=== PATIENT | female | born 1930 | race Caucasian/White ===

== ENCOUNTER 2017-06-09 21:34 | Inpatient (IN) | payer MEDICARE ==
[~2017-06-09] VITALS: Ht 157.5 cm; Wt 68.7 kg
[~2017-06-09 21:34] MED LIST: ASPI81 PO; CIPR500T2 PO; LISI5 PO; METO50TA PO; METR-1 PO; PRAV40TA PO; RANI150 PO; TICA90 PO
[2017-06-09 21:35] VITALS: BP 142/68; PULSE 132; RESP 18; TEMP 98.7; O2SAT 98
[2017-06-09] MEDS ORDERED: ASPI-516 CHEW (21:47)
[2017-06-09] MEDS ORDERED: BRIL90TA PO (21:47)
[2017-06-09] MEDS ORDERED: PANTOPRAZOLE INJ 80 MG in SODIUM CHLORIDE 0.9% INJ 35 ML IV ONE (22:24)
[2017-06-09 22:27] VITALS: BP 179/77; PULSE 99; RESP 16; O2SAT 97
--- NOTE | 2017-06-09 22:44 | PD ---
HPI Chief Complaint: GI Complaint Time Seen by Provider: 22:16 Travel History International Travel<30 days: No Contact w/Intl Traveler<30days: No Traveled to known affect area: No History of Present Illness HPI 86yo F with PMH of CAD s/p cardiac stent on brillinta, HTN presents to the ED with c/o gush of red blood about an hour ago. Said it had stopped and then happened again when she went to the bathroom here. Denies any fever, chest pain , sob, n/v, focal weakness or numbness. Said she had some abdominal pain prior to the blood coming out and only when I press on it. PFSH Past Medical History Hx Anticoagulant Therapy: Yes (ASA) Arthritis: No Cancer: No Cardiac Catheterization: Yes Cardiovascular Problems: Yes (STENT IN THE HEART) Diabetes: Yes Patient Takes Glucophage: No Diminished Hearing: No Endocrine: Yes Gastrointestinal Disorders: Yes Genitourinary: Yes Hepatitis: No Hiatal Hernia: Yes Hypertension: Yes Medical other: Yes (ARTHRITIS) Musculoskeletal: Yes Neurologic: No Psychiatric: No Respiratory: No Thyroid Disease: No ?: Not Menopausal: Yes Past Surgical History Abdominal Surgery: Yes (HYSTERECTOMY WITH APPENDECTOMY 1954) Appendectomy: Yes Coronary Stent: Yes (x1) Genitourinary Surgery: Yes (BLADDER SUSPENSION ) Hysterectomy: Yes Oral Surgery: Yes (T&A AGE 10) Pacemaker: No Other Surgery: Yes Family History Family Hypercholesterolemia: Yes Social History Alcohol Use: No Tobacco Use: No Substance Use: No Allergies-Medications (Allergen,Severity, Reaction): Coded Allergies: clopidogrel (Unverified Allergy, Severe, 06/09/17) Uncoded Allergies: fish (Allergy, Severe, 11/01/15) hives, swelling Reported Meds & Prescriptions Reported Meds & Active Scripts Active Reported Brilinta (Ticagrelor) 90 Mg Tab 90 Mg PO BID Aspirin 81 Mg Chew 81 Mg CHEW DAILY Review of Systems Except as stated in HPI: all other systems reviewed are Neg Physical Exam Narrative GENERAL: 86yo F in mild distress. SKIN: Focused skin assessment warm/dry. HEAD: Atraumatic. Normocephalic. EYES: Pupils equal and round. No scleral icterus. No injection or drainage. ENT: No nasal bleeding or discharge. Mucous membranes pink and moist. NECK: Trachea midline. No JVD. CARDIOVASCULAR: Mildly tachycardic in the 105s RESPIRATORY: No accessory muscle use. Clear to auscultation. Breath sounds equal bilaterally. GASTROINTESTINAL: Abdomen soft, +mild ttp left and right upper abdomen. No rebound tenderness or guarding. RECTAL: +Red blood. Hemaprompt positive. MUSCULOSKELETAL: No obvious deformities. No clubbing. No cyanosis. No edema. NEUROLOGICAL: Awake and alert. No obvious cranial nerve deficits. Motor grossly within normal limits. Normal speech. PSYCHIATRIC: Appropriate mood and affect; insight and judgment normal. Data Data Last Documented VS Vital Signs Date Time Temp Pulse Resp B/P (MAP) Pulse Ox O2 Delivery O2 Flow Rate FiO2 06/10/17 00:18 84 16 133/67 (89) 96 Room Air 06/09/17 21:35 98.7 Orders Orders Basic Metabolic Panel (Bmp) (06/09/17 22:24) Complete Blood Count With Diff (06/09/17 22:24) Lipase (06/09/17 22:24) Prothrombin Time / Inr (Pt) (06/09/17 22:24) Act Partial Throm Time (Ptt) (06/09/17 22:24) Urinalysis - C+S If Indicated (06/09/17 22:24) Type And Screen (06/09/17 22:24) Sodium Chloride 0.9... W/Pantoprazole In (06/09/17 22:24) Sodium Chloride 0.9... W/Pantoprazole In (06/09/17 22:24) Ct Abd/Pel W Iv Contrast(Rout) (06/09/17 ) Iohexol 350 Inj (Omnipaque 350 Inj) (06/09/17 23:45) Admit Order (Ed Use Only) (06/10/17 00:34) Labs Laboratory Tests Test 06/09/17 22:41 White Blood Count 10.7 TH/MM3 Red Blood Count 4.33 MIL/MM3 Hemoglobin 11.6 GM/DL Hematocrit 33.9 % Mean Corpuscular Volume 78.2 FL Mean Corpuscular Hemoglobin 26.8 PG Mean Corpuscular Hemoglobin Concent 34.3 % Red Cell Distribution Width 14.8 % Platelet Count 233 TH/MM3 Mean Platelet Volume 9.1 FL Neutrophils (%) (Auto) 70.1 % Lymphocytes (%) (Auto) 20.7 % Monocytes (%) (Auto) 7.3 % Eosinophils (%) (Auto) 1.3 % Basophils (%) (Auto) 0.6 % Neutrophils # (Auto) 7.5 TH/MM3 Lymphocytes # (Auto) 2.2 TH/MM3 Monocytes # (Auto) 0.8 TH/MM3 Eosinophils # (Auto) 0.1 TH/MM3 Basophils # (Auto) 0.1 TH/MM3 CBC Comment DIFF FINAL Differential Comment Prothrombin Time 10.2 SEC Prothromb Time International Ratio 1.0 RATIO Activated Partial Thromboplast Time 25.9 SEC Urine Color LIGHT-YELLOW Urine Turbidity CLEAR Urine pH 6.5 Urine Specific [place] 1.011 Urine Protein NEG mg/dL Urine Glucose (UA) NEG mg/dL Urine Ketones NEG mg/dL Urine Occult Blood MOD Urine Nitrite NEG Urine Bilirubin NEG Urine Urobilinogen LESS THAN 2.0 MG/DL Urine Leukocyte Esterase SMALL Urine RBC LESS THAN 1 /hpf Urine WBC 1 /hpf Urine Squamous Epithelial Cells <1 /hpf Urine Bacteria RARE /hpf Microscopic Urinalysis Comment CULT NOT INDICATED Blood Urea Nitrogen 24 MG/DL Creatinine 0.98 MG/DL Random Glucose 206 MG/DL Calcium Level 8.7 MG/DL Sodium Level 135 MEQ/L Potassium Level 3.5 MEQ/L Chloride Level 99 MEQ/L Carbon Dioxide Level 25.6 MEQ/L Anion Gap 10 MEQ/L Estimat Glomerular Filtration Rate 54 ML/MIN Lipase 132 U/L [facility] Medical Decision Making Medical Screen Exam Complete: Yes Emergency Medical Condition: Yes Differential Diagnosis AV malformation vs. colitis vs. internal hemorrhoids Narrative Course 86yo F with lower GI bleed. Pt said she has episodes of gushes of bright red blood. Initially tachycardic at 132bpm at triage but HR has improved to normal after NS IVF. Labs reviewed, no leukocytosis. H/H 11.6/33.9. Glucose mildly elevated at 206 but normal anion gap. Lipase normal. UA showed moderate blood. culture not indicated. CT a/p showed no acute finding. I feel that observation is warranted given pt's age, multiple comorbidities and episodes of large amounts of Gl bleed. Protonix given. Discussed with Dr. Casillas and accepted to her service. [facility] Point of Care Internal Pos. & Neg. Controls: Passed Fecal Specimen Occult Blood: Positive Diagnosis Primary Impression: GI bleed Qualified Codes: K92.2 - Gastrointestinal hemorrhage, unspecified Admitting Information Admitting Physician Requests: Observation Viramontes,Evelin DO Jun 09, 2017 22:44
[2017-06-09 22:58] LABS: AUTOMATED NEUTROPHIL # 7.5 TH/MM3 (1.8-7.7); BASOPHIL # 0.1 TH/MM3 (0-0.2); BASOPHIL % 0.6 % (0.0-2.0); EOSINOPHIL # 0.1 TH/MM3 (0-0.4); EOSINOPHIL % 1.3 % (0.0-4.0); HEMATOCRIT 33.9 % (35.0-46.0); HEMOGLOBIN 11.6 GM/DL (11.6-15.3); LYMPH % 20.7 % (9.0-44.0); LYMPHOCYTE # 2.2 TH/MM3 (1.0-4.8); MEAN CELL VOLUME 78.2 FL (80.0-100.0); MEAN CORPUSCULAR HEMOGLOBIN 26.8 PG (27.0-34.0); MEAN CORPUSCULAR HGB CONC 34.3 % (32.0-36.0); MEAN PLATELET VOLUME 9.1 FL (7.0-11.0); MONO % 7.3 % (0.0-8.0); MONOCYTE # 0.8 TH/MM3 (0-0.9); NEUT % 70.1 % (16.0-70.0); PLATELET COUNT 233 TH/MM3 (150-450); RED BLOOD COUNT 4.33 MIL/MM3 (4.00-5.30); RED CELL DISTRIBUTION WIDTH 14.8 % (11.6-17.2); WHITE BLOOD COUNT 10.7 TH/MM3 (4.0-11.0)
[2017-06-09 23:01] LABS: BACTERIA, URINE RARE /hpf; BILIRUBIN, URINE NEG (NEG); BLOOD, URINE MOD (NEG); GLUCOSE,URINE NEG (NEG); KETONE, URINE NEG (NEG); NITRITE,URINE NEG (NEG); PH, URINE 6.5 (5.0-8.5); SQUAMOUS EPITHELIAL CELL URINE <1 /hpf (0-5); URINE COLOR LIGHT-YELLOW (YELLW/STRAW); URINE LEUKOCYTE ESTERASE SMALL (NEG)
[2017-06-09 23:10] LABS: PROTHROMBIN TIME - PATIENT 10.2 SEC (9.8-11.6)
[2017-06-09 23:18] LABS: BICARBONATE 25.6 MEQ/L (21.0-32.0); CALCIUM 8.7 MG/DL (8.5-10.1); CREATININE 0.98 MG/DL (0.50-1.00)
[2017-06-09] MEDS ORDERED: IOHEXOL 350 MG/ML 10 ML VIAL (for RAD DIAG) IVCONTRAST ONE (23:45)
[2017-06-10] VITALS (10 sets, daily range): BP systolic 133–185; BP diastolic 67–81; PULSE 80–90; RESP 16–20; TEMP 97.1–98.4; O2SAT 94–96
--- NOTE | 2017-06-10 00:05 | RADRPT ---
EXAM DATE/TIME: 06/09/2017 23:43 [place] COMPARISON: No previous studies available for comparison. INDICATIONS : Rectal bleeding. IV CONTRAST: 100 cc Omnipaque 350 (iohexol) IV ORAL CONTRAST: No oral contrast ingested. RADIATION DOSE: 6.61 CTDIvol (mGy) MEDICAL HISTORY : Cardiovascular disease. Hernia, hiatal. Diabetes mellitus type 2. SURGICAL HISTORY : Appendectomy. Cholecystectomy.Hysterectomy.Bladder suspension. ENCOUNTER: Initial ACUITY: 1 day PAIN SCALE: 0/10 LOCATION: abdomen TECHNIQUE: Volumetric scanning of the abdomen and pelvis was performed. Using automated exposure control and ad justment of the mA and/or kV according to patient size, radiation dose was kept as low as reasonably achievable to obtain optimal diagnostic quality images. DICOM format image data is available electro nically for review and comparison. FINDINGS: LOWER LUNGS: The visualized lower lungs are clear. LIVER: Homogeneous density without lesion. There is no dilation of the biliary tree. No calcified gallston es. SPLEEN: Normal size without lesion. PANCREAS: Within normal limits. KIDNEYS: Normal in size and shape. There is no mass, stone or hydronephrosis. ADRENAL GLANDS: Within normal limits. VASCULAR: There is no aortic aneurysm. BOWEL/MESENTERY: Small hiatal hernia. Distal colonic diverticulosis. No definite abnormal dilatation, wall thickening or focal inflammatory change. ABDOMINAL WALL: Within normal limits. RETROPERITONEUM: There is no lymphadenopathy. BLADDER: No wall thickening or mass. REPRODUCTIVE: Uterus surgically absent. No evidence of pelvic mass or free fluid. INGUINAL: There is no lymphadenopathy or hernia. MUSCULOSKELETAL: Within normal limits for patient age. CONCLUSION: No acute CT findings in the abdomen or pelvis. Morgan Boyer MD on June 09, 2017 at 23:55 Board Certified Radiologist. This report was verified electronically.
[2017-06-10] MEDS: PANTOPRAZOLE INJ 80 MG in SODIUM CHLORIDE 0.9% INJ 100 ML IV SCH ×3 (00:07→18:24)
[2017-06-10] MEDS ORDERED: MAGNESIUM HYDROXIDE SUSP 30 ML CUP PO PRN (01:00)
[2017-06-10] MEDS ORDERED: GLUCAGON 1 MG/ML VIAL OTHER PRN (01:00)
[2017-06-10] MEDS ORDERED: SODIUM CHLORIDE 0.9% FLUSH 10 ML FLUSH IV FLUSH PRN (01:00)
[2017-06-10] MEDS ORDERED: ACETAMINOPHEN/HYDROcodone 325 MG/10 MG TAB PO PRN (01:00)
[2017-06-10] MEDS ORDERED: ACETAMINOPHEN 325 MG TAB PO PRN (01:00)
[2017-06-10] MEDS ORDERED: DEXTROSE 50% IN WATER 50 ML VIAL(D50) IV PUSH PRN (01:00)
[2017-06-10] MEDS ORDERED: ACETAMINOPHEN/HYDROcodone 325 MG/5 MG TAB PO PRN (01:00)
[2017-06-10] MEDS ORDERED: LACTULOSE SYRUP 20 GM/30 ML CUP PO PRN (01:00)
[2017-06-10] MEDS ORDERED: SENNOSIDES 8.6 MG TAB PO PRN (01:00)
[2017-06-10] MEDS: SODIUM CHLOR 0.9% 1000 ML INJ 1,000 ML IV SCH ×3 (01:00→21:00)
[2017-06-10] MEDS ORDERED: ONDANSETRON HCL 4 MG/2 ML VIAL IVP PRN (01:00)
[2017-06-10] MEDS ORDERED: BISACODYL 10 MG SUPP RECTAL PRN (01:00)
--- NOTE | 2017-06-10 02:29 | HHI.HP ---
[facility] Calvin Crump MD Admission Diagnosis GI bleed Diagnoses: (1) Rectal bleed Diagnosis: Principal (2) HTN (hypertension) Diagnosis: Principal (3) DM (diabetes mellitus) Diagnosis: Principal Travel History International Travel<30 Days: No Contact w/Intl Traveler <30 Da: No Traveled to Known Affected Are: No History of Present Illness This is an 86-year-old female with a PMH of HTN, Hyperlipidemia, DM and CAD who presented ER with complaints of bright red blood per rectum. Patient states she had sudden episode of rectal bleeding, reports blood was "gushing" out. Had recurrent episode of BRBPR while in ER. Denies h/o similar symptoms. On ASA only. On arrival, BP 142/68, HR 132, O2 sat 98% on RA, Afebrile. Hemoglobin 11.6, previously 9.9 on 11/21/15. Chemistry essentially unremarkable INR 1.0. UA negative. CT Abd/Pelvis w/ no acute findings. Review of Systems Except as stated in HPI: all other systems reviewed are Neg ROS: 14 point review of systems otherwise negative. Past Family Social History Past Medical History PMH: HTN, Hyperlipidemia, DM and CAD Past Surgical History PAST SURGICAL HISTORY: Hysterectomy, Appendectomy, Cardiac stent, Bladder Suspension, Tonsillectomy Allergies: Coded Allergies: clopidogrel (Unverified Allergy, Severe, 06/09/17) Uncoded Allergies: fish (Allergy, Severe, 11/01/15) hives, swelling Family History PAST FAMILY HISTORY: Reviewed, positive for DM, CAD and Hypercholesterolemia Social History PAST SOCIAL HISTORY: Negative for alcohol, tobacco or drugs. Physical Exam Vital Signs Vital Signs Date Time Temp Pulse Resp B/P (MAP) Pulse Ox O2 Delivery O2 Flow Rate FiO2 06/10/17 00:18 84 16 133/67 (89) 96 Room Air 06/09/17 22:27 99 16 179/77 (111) 97 Room Air 06/09/17 21:35 98.7 132 18 142/68 (92) 98 Room Air Physical Exam PE: GENERAL: Pleasant elderly white female in no acute distress. HEENT: PERRLA, EOMI. No scleral icterus or conjunctival pallor. No lid lag or facial droop. CARDIOVASCULAR: Regular rate and rhythm. No obvious murmurs to auscultation. No chest tenderness to palpation. RESPIRATORY: No obvious rhonchi or wheezing. Clear to auscultation. Breath sounds equal bilaterally. GASTROINTESTINAL: Abdomen soft, mild generalized tenderness to palpation, nondistended. BS normal. MUSCULOSKELETAL: Extremities without clubbing, cyanosis, or edema. No obvious deformities. NEUROLOGICAL: Awake, alert and oriented x4. No focal neurologic deficits. Moving both upper and lower extremities spontaneously. Laboratory Laboratory Tests Test 06/09/17 22:41 White Blood Count 10.7 Red Blood Count 4.33 Hemoglobin 11.6 Hematocrit 33.9 Mean Corpuscular Volume 78.2 Mean Corpuscular Hemoglobin 26.8 Mean Corpuscular Hemoglobin Concent 34.3 Red Cell Distribution Width 14.8 Platelet Count 233 Mean Platelet Volume 9.1 Neutrophils (%) (Auto) 70.1 Lymphocytes (%) (Auto) 20.7 Monocytes (%) (Auto) 7.3 Eosinophils (%) (Auto) 1.3 Basophils (%) (Auto) 0.6 Neutrophils # (Auto) 7.5 Lymphocytes # (Auto) 2.2 Monocytes # (Auto) 0.8 Eosinophils # (Auto) 0.1 Basophils # (Auto) 0.1 CBC Comment DIFF FINAL Differential Comment Prothrombin Time 10.2 Prothromb Time International Ratio 1.0 Activated Partial Thromboplast Time 25.9 Urine Color LIGHT-YELLOW Urine Turbidity CLEAR Urine pH 6.5 Urine Specific [place] 1.011 Urine Protein NEG Urine Glucose (UA) NEG Urine Ketones NEG Urine Occult Blood MOD Urine Nitrite NEG Urine Bilirubin NEG Urine Urobilinogen LESS THAN 2.0 Urine Leukocyte Esterase SMALL Urine RBC LESS THAN 1 Urine WBC 1 Urine Squamous Epithelial Cells <1 Urine Bacteria RARE Microscopic Urinalysis Comment CULT NOT INDICATED Blood Urea Nitrogen 24 Creatinine 0.98 Random Glucose 206 Calcium Level 8.7 Sodium Level 135 Potassium Level 3.5 Chloride Level 99 Carbon Dioxide Level 25.6 Anion Gap 10 Estimat Glomerular Filtration Rate 54 Lipase 132 Result Diagram: 06/09/17224006/09/172240 Caprini VTE Risk Assessment Caprini VTE Risk Assessment: No/Low Risk (score <= 1) VTE Pharm Contraindication: Active bleeding Caprini Risk Assessment Model Point Value = 1 Point Value = 2 Point Value = 3 Point Value = 5 Age 41-60 Minor surgery BMI > 25 kg/m2 Swollen legs Varicose veins or History of unexplained or recurrent spontaneous Oral contraceptives or hormone replacement Sepsis (< 1 month) Serious lung disease, including pneumonia (< 1 month) Abnormal pulmonary function Acute myocardial infarction Congestive heart failure (< 1 month) History of inflammatory bowel disease Medical patient at bed rest Age 61-74 Arthroscopic surgery Major open surgery (> 45 min) Laparoscopic surgery (> 45 min) Malignancy Confined to bed (> 72 hours) Immobilizing plaster cast Central venous access Age >= 75 History of VTE Family history of VTE Factor V Leiden Prothrombin [id number] Lupus anticoagulant Anticardiolipin antibodies Elevated serum homocysteine Heparin-induced thrombocytopenia Other congenital or acquired thrombophilia Stroke (< 1 month) Elective arthroplasty Hip, pelvis, or leg fracture Acute spinal cord injury (< 1 month) Prophylaxis Regimen Total Risk Factor Score Risk Level Prophylaxis Regimen 0-1 Low Early ambulation 2 Moderate Order ONE of the following: *Sequential Compression Device (SCD) *Heparin 5000 units SQ BID 3-4 Higher Order ONE of the following medications: *Heparin 5000 units SQ TID *Enoxaparin/Lovenox 40 mg SQ daily (WT < 150 kg, CrCl > 30 mL/min) *Enoxaparin/Lovenox 30 mg SQ daily (WT < 150 kg, CrCl > 10-29 mL/min) *Enoxaparin/Lovenox 30 mg SQ BID (WT < 150 kg, CrCl > 30 mL/min) AND/OR *Sequential Compression Device (SCD) 5 or more Highest Order ONE of the following medications: *Heparin 5000 units SQ TID (Preferred with Epidurals) *Enoxaparin/Lovenox 40 mg SQ daily (WT < 150 kg, CrCl > 30 mL/min) *Enoxaparin/Lovenox 30 mg SQ daily (WT < 150 kg, CrCl > 10-29 mL/min) *Enoxaparin/Lovenox 30 mg SQ BID (WT < 150 kg, CrCl > 30 mL/min) AND *Sequential Compression Device (SCD) Assessment and Plan Problem List: (1) Rectal bleed ICD Code: K62.5 - Hemorrhage of anus and rectum (2) HTN (hypertension) ICD Code: I10 - Essential (primary) hypertension Status: Acute (3) DM (diabetes mellitus) ICD Code: E11.9 - Type 2 diabetes mellitus without complications Assessment and Plan A/P: 1. Rectal Bleed: acute onset of BRBPR x1 at home, recurrent episode while in ER. H/o similar symptoms 11/18/15 s/p Flex Sig, bleed likely secondary to colonic ischemia from hypovolemia after gastroenteritis. No nausea/vomiting or diarrhea. Hgb stable at 11.6, previously 9.9 on 11/21/15. Monitor Hgb/Hct. Consult GI for further evaluation. CT Abd/Pelvis w/ no acute findings, images reviewed by me. 2. HTN: BP 170's while in ER, currently 133/67, HR 84. Will monitor 3. DM: Sliding scale w/ Accu-Cheks. 4. DVT Prophylaxis: SCD/Teds. 5. Social work for d/c planning as needed. 6. Case discussed w/ ER physician at length. Fely Casillas MD Jun 10, 2017 02:29
[2017-06-10 08:43] LABS: AUTOMATED NEUTROPHIL # 3.9 TH/MM3 (1.8-7.7); BASOPHIL % 0.8 % (0.0-2.0); EOSINOPHIL # 0.1 TH/MM3 (0-0.4); EOSINOPHIL % 2.3 % (0.0-4.0); LYMPH % 23.4 % (9.0-44.0); LYMPHOCYTE # 1.4 TH/MM3 (1.0-4.8); MEAN CORPUSCULAR HGB CONC 33.3 % (32.0-36.0); MEAN PLATELET VOLUME 8.6 FL (7.0-11.0); MONO % 8.2 % (0.0-8.0); MONOCYTE # 0.5 TH/MM3 (0-0.9); NEUT % 65.3 % (16.0-70.0); PLATELET COUNT 182 TH/MM3 (150-450); RED BLOOD COUNT 3.84 MIL/MM3 (4.00-5.30); RED CELL DISTRIBUTION WIDTH 14.7 % (11.6-17.2)
[2017-06-10] MEDS: DOCUSATE SODIUM 50 MG/SENNA 8.6 MG TAB PO SCH ×2 (08:45→21:00)
[2017-06-10] MEDS: INSULIN ASPART SUPPLEMENTAL SCALE SQ SCH ×4 (08:45→21:00)
[2017-06-10] MEDS: SODIUM CHLORIDE 0.9% FLUSH 10 ML FLUSH IV FLUSH SCH ×2 (09:00→21:00)
[2017-06-10 09:05] LABS: ALBUMIN 3.1 GM/DL (3.4-5.0); AST (GOT) 15 U/L (15-37); BICARBONATE 26.6 MEQ/L (21.0-32.0); BLOOD UREA NITROGEN 14 MG/DL (7-18); CALCIUM 8.3 MG/DL (8.5-10.1); CHLORIDE 103 MEQ/L (98-107); CREATININE 0.66 MG/DL (0.50-1.00); GLOMERULAR FILTRATION RATE 85 ML/MIN (>89); GLUCOSE,RANDOM 149 MG/DL (74-106); SODIUM (NA) 135 MEQ/L (136-145)
[2017-06-10 09:06] LABS: ALT (GPT) 20 U/L (10-53)
[2017-06-10 09:08] LABS: ALKALINE PHOSPHATASE 70 U/L (45-117); TOTAL BILIRUBIN ADULT 0.3 MG/DL (0.2-1.0); TOTAL PROTEIN 6.1 GM/DL (6.4-8.2)
--- NOTE | 2017-06-10 10:01 | HHI.PR ---
Subjective Remarks Follow-up for rectal bleeding Patient stated that she has not had any bleeding since she was admitted to the hospital. She has not had any bowel movements. She denies any chest pain, lightheadedness/dizziness, shortness of breathing. Patient's nurse at the bedside and the interview. She has no other complaints. Objective Vitals Vital Signs Date Time Temp Pulse Resp B/P (MAP) Pulse Ox O2 Delivery O2 Flow Rate FiO2 06/10/17 08:00 97.1 85 20 161/67 (98) 96 06/10/17 04:28 97.9 80 18 159/75 (103) 94 06/10/17 02:50 06/10/17 00:18 84 16 133/67 (89) 96 Room Air 06/09/17 22:27 99 16 179/77 (111) 97 Room Air 06/09/17 21:35 98.7 132 18 142/68 (92) 98 Room Air I/O 06/09/17 06/09/17 06/09/17 06/10/17 06/10/17 06/10/17 07:00 15:00 23:00 07:00 15:00 23:00 Intake Total 35 ml Balance 35 ml Intake IV Total 35 ml Result Diagram: 06/10/1782006/10/17820 Objective Remarks GENERAL: in NAD SKIN: Warm and dry. HEAD: Normocephalic. EYES: No scleral icterus. No injection or drainage. NECK: Supple, trachea midline. No JVD or lymphadenopathy. CARDIOVASCULAR: Regular rate and rhythm without murmurs, gallops, or rubs. RESPIRATORY: Breath sounds equal bilaterally. No accessory muscle use. GASTROINTESTINAL: Abdomen soft, non-tender, nondistended. MUSCULOSKELETAL: No cyanosis, or edema. BACK: Nontender without obvious deformity. No CVA tenderness. Medications and IVs Current Medications Pantoprazole Sodium 80 mg/ Sodium Chloride 35 ml @ 420 mls/hr Q5M ONCE IV Last administered on 06/10/17 00:07; Start 06/09/17 at 22:24; Stop 06/09/17 at 22:28; Status DC Pantoprazole Sodium 80 mg/ Sodium Chloride 100 ml @ 10 mls/hr Q10H IV Last administered on 06/10/17 00:07; Start 06/09/17 at 22:24 Iohexol (Omnipaque 350 Inj) 100 ml STK-MED ONCE IVCONTRAST Last administered on 06/09/17 23:45; Start 06/09/17 at 23:45; Stop 06/09/17 at 23:46; Status DC Dextrose (D50w (Vial) Inj) 50 ml UNSCH PRN IV PUSH HYPOGLYCEMIA-SEE COMMENTS; Start 06/10/17 at 01:00 Glucagon (Glucagon Inj) 1 mg UNSCH PRN OTHER HYPOGLYCEMIA-SEE COMMENTS; Start 06/10/17 at 01:00 Insulin Aspart (NovoLOG SUPPLEMENTAL SCALE) 1 ACHS SLIDING SCALE SQ ; Start at 08:00 Sodium Chloride 1,000 ml @ 100 mls/hr Q10H IV Last administered on 06/10/17 01:00; Start 06/10/17 at 01:00 Sodium Chloride (NS Flush) 2 ml UNSCH PRN IV FLUSH FLUSH AFTER USING IV ACCESS ; Start 06/10/17 at 01:00 Sodium Chloride (NS Flush) 2 ml BID IV FLUSH ; Start 06/10/17 at 09:00 Ondansetron HCl (Zofran Inj) 4 mg Q6H PRN IVP NAUSEA OR VOMITING; Start at 01:00 Acetaminophen (Tylenol) 650 mg Q6H PRN PO FEVER/PAIN SCALE 1 TO 2; Start 06/10 at 01:00 Acetaminophen/ Hydrocodone Bitart ([place] 5-325 Mg) 1 tab Q4H PRN PO PAIN SCALE 3 TO 5; Start 06/10/17 at 01:00 Acetaminophen/ Hydrocodone Bitart ([place] 10-325 Mg) 1 tab Q4H PRN PO PAIN SCALE 6 TO 10; Start 06/10/17 at 01:00 Senna/Docusate Sodium (Nolvia-Colace) 1 tab BID PO ; Start 06/10/17 at 09:00 Magnesium Hydroxide (Milk Of Magnesia Liq) 30 ml Q12H PRN PO Mild constipation ; Start 06/10/17 at 01:00 Sennosides (Senokot) 17.2 mg Q12H PRN PO Moderate constipation; Start at 01:00 Bisacodyl (Dulcolax Supp) 10 mg DAILY PRN RECTAL SEVERE CONSITIPATION/ IF NPO; Start 06/10/17 at 01:00 Lactulose (Lactulose Liq) 30 ml DAILY PRN PO SEVERE CONSITIPATION/ IF PO; Start 06/10/17 at 01:00 A/P Problem List: (1) Rectal bleed ICD Code: K62.5 - Hemorrhage of anus and rectum (2) HTN (hypertension) ICD Code: I10 - Essential (primary) hypertension Status: Acute (3) DM (diabetes mellitus) ICD Code: E11.9 - Type 2 diabetes mellitus without complications Assessment and Plan 86-year-old female presented with rectal bleeding Rectal Bleed: -acute onset of BRBPR x1 at home, recurrent episode while in ER. H/o similar symptoms 11/18/15 s/p Flex Sig, bleed likely secondary to colonic ischemia from hypovolemia after gastroenteritis. -Hemoglobin 11.6 dropped to 10. -Continue to trend hemoglobin. -Will transfuse if hemoglobin drops below 7 or if there is a significant drop. -pending GI consult. HTN: - BP 170's while in ER, currently 133/67, HR 84. Will monitor DM: Sliding scale w/ Accu-Cheks. DVT Prophylaxis: SCD/Teds. Discharge Planning Pending recommendations from GI. Tamara Beverly MD Jun 10, 2017 10:01
--- NOTE | 2017-06-10 11:46 | PD.CONS ---
HPI History of Present Illness This is a 86 year old female with a PMH of HTN, Hyperlipidemia, DM and CAD who presented ER with complaints of bright red blood per rectum. Patient gushing bloody BM at home. Had recurrent episode of BRBPR while in ER. Then had another bloody BM today. patient had similar episode last year, s/p 11/18/15 Flex Sig------> circumferential abnormal mucosa was found in the sigmoid colon, descending, at splenic flexures, and transverse, the mucosa was congested, possible ischemia, no bx done due to being on Birlinta . CT Abd/Pelvis w/ no acute findings. hgb today is 10.0, this is a drop from yesterday. (Ramon Zhao) PFSH Past Medical History PMH: HTN, Hyperlipidemia, DM and CAD Past Surgical History PAST SURGICAL HISTORY: Hysterectomy, Appendectomy, Cardiac stent, Bladder Suspension, Tonsillectomy (Ramon Zhao) Coded Allergies: clopidogrel (Unverified Allergy, Severe, 06/09/17) Uncoded Allergies: fish (Allergy, Severe, 11/01/15) hives, swelling Medications Current Medications Medications (Trade) Dose Ordered Sig/Noemi Route Start Time Stop Time Status Last Admin Pantoprazole Sodium 80 mg/ Sodium Chloride 100 ml @ 10 mls/hr Q10H IV 06/09/17 22:24 06/10/17 00:07 (D50w (Vial) Inj) 50 ml UNSCH PRN IV PUSH 06/10/17 01:00 (Glucagon Inj) 1 mg UNSCH PRN OTHER 06/10/17 01:00 (NovoLOG SUPPLEMENTAL SCALE) 1 ACHS SLIDING SCALE SQ 06/10/17 08:00 Sodium Chloride 1,000 ml @ 100 mls/hr Q10H IV 06/10/17 01:00 06/10/17 01:00 (NS Flush) 2 ml UNSCH PRN IV FLUSH 06/10/17 01:00 (NS Flush) 2 ml BID IV FLUSH 06/10/17 09:00 (Zofran Inj) 4 mg Q6H PRN IVP 06/10/17 01:00 (Tylenol) 650 mg Q6H PRN PO 06/10/17 01:00 ([place] 5-325 Mg) 1 tab Q4H PRN PO 06/10/17 01:00 ([place] 10-325 Mg) 1 tab Q4H PRN PO 06/10/17 01:00 (Nolvia-Colace) 1 tab BID PO 06/10/17 09:00 (Milk Of Magnesia Liq) 30 ml Q12H PRN PO 06/10/17 01:00 (Senokot) 17.2 mg Q12H PRN PO 06/10/17 01:00 (Dulcolax Supp) 10 mg DAILY PRN RECTAL 06/10/17 01:00 (Lactulose Liq) 30 ml DAILY PRN PO 06/10/17 01:00 Family History PAST FAMILY HISTORY: Reviewed, positive for DM, CAD and Hypercholesterolemia Social History PAST SOCIAL HISTORY: Negative for alcohol, tobacco or drugs. (Ramon Zhao) Review of Systems Constitutional: DENIES: Dizziness, Change in appetite Endocrine: DENIES: Polyuria Eyes: DENIES: Photosensitivity Ears, nose, mouth, throat: DENIES: Hoarseness Respiratory: DENIES: Shortness of breath Cardiovascular: DENIES: Orthopnea Gastrointestinal: COMPLAINS OF: Bloody stools, Diarrhea, DENIES: Abdominal pain , Black stools, Constipation, Nausea, Difficulty Swallowing, Anorexia, Odynophagia, Heartburn, Hematemesis Genitourinary: DENIES: Hematuria, Nocturia Musculoskeletal: DENIES: Back pain Integumentary: DENIES: Pruritus Hematologic/lymphatic: DENIES: Bruising Immunologic/allergic: DENIES: Eczema Neurologic: DENIES: Abnormal gait Psychiatric: DENIES: Anxiety (Ramon Zhao) GI Exam Vitals I&O Vital Signs Date Time Temp Pulse Resp B/P (MAP) Pulse Ox O2 Delivery O2 Flow Rate FiO2 06/10/17 08:00 97.1 85 20 161/67 (98) 96 06/10/17 04:28 97.9 80 18 159/75 (103) 94 06/10/17 02:50 06/10/17 00:18 84 16 133/67 (89) 96 Room Air 06/09/17 22:27 99 16 179/77 (111) 97 Room Air 06/09/17 21:35 98.7 132 18 142/68 (92) 98 Room Air I/O 06/09/17 06/09/17 06/09/17 06/10/17 12/23/17 12/23/17 07:00 15:00 23:00 07:00 15:00 23:00 Intake Total 35 ml Balance 35 ml Intake IV Total 35 ml Imaging Last Impressions Abdomen/Pelvis CT 06/09/17 0000 Signed Impressions: Service Date/Time: Friday, June 09, 2017 23:43 - CONCLUSION: No acute CT findings in the abdomen or pelvis. Morgan Boyer MD Laboratory Test 06/09/17 22:41 06/10/17 08:21 White Blood Count 10.7 TH/MM3 6.0 TH/MM3 Red Blood Count 4.33 MIL/MM3 3.84 MIL/MM3 Hemoglobin 11.6 GM/DL 10.0 GM/DL Hematocrit 33.9 % 30.0 % Mean Corpuscular Volume 78.2 FL 78.0 FL Mean Corpuscular Hemoglobin 26.8 PG 26.0 PG Mean Corpuscular Hemoglobin Concent 34.3 % 33.3 % Red Cell Distribution Width 14.8 % 14.7 % Platelet Count 233 TH/MM3 182 TH/MM3 Mean Platelet Volume 9.1 FL 8.6 FL Neutrophils (%) (Auto) 70.1 % 65.3 % Lymphocytes (%) (Auto) 20.7 % 23.4 % Monocytes (%) (Auto) 7.3 % 8.2 % Eosinophils (%) (Auto) 1.3 % 2.3 % Basophils (%) (Auto) 0.6 % 0.8 % Neutrophils # (Auto) 7.5 TH/MM3 3.9 TH/MM3 Lymphocytes # (Auto) 2.2 TH/MM3 1.4 TH/MM3 Monocytes # (Auto) 0.8 TH/MM3 0.5 TH/MM3 Eosinophils # (Auto) 0.1 TH/MM3 0.1 TH/MM3 Basophils # (Auto) 0.1 TH/MM3 0.0 TH/MM3 CBC Comment DIFF FINAL DIFF FINAL Differential Comment Prothrombin Time 10.2 SEC Prothromb Time International Ratio 1.0 RATIO Activated Partial Thromboplast Time 25.9 SEC Urine Color LIGHT-YELLOW Urine Turbidity CLEAR Urine pH 6.5 Urine Specific [place] 1.011 Urine Protein NEG mg/dL Urine Glucose (UA) NEG mg/dL Urine Ketones NEG mg/dL Urine Occult Blood MOD Urine Nitrite NEG Urine Bilirubin NEG Urine Urobilinogen LESS THAN 2.0 MG/DL Urine Leukocyte Esterase SMALL Urine RBC LESS THAN 1 /hpf Urine WBC 1 /hpf Urine Squamous Epithelial Cells <1 /hpf Urine Bacteria RARE /hpf Microscopic Urinalysis Comment CULT NOT INDICATED Blood Urea Nitrogen 24 MG/DL 14 MG/DL Creatinine 0.98 MG/DL 0.66 MG/DL Random Glucose 206 MG/DL 149 MG/DL Calcium Level 8.7 MG/DL 8.3 MG/DL Sodium Level 135 MEQ/L 135 MEQ/L Potassium Level 3.5 MEQ/L 3.6 MEQ/L Chloride Level 99 MEQ/L 103 MEQ/L Carbon Dioxide Level 25.6 MEQ/L 26.6 MEQ/L Anion Gap 10 MEQ/L 5 MEQ/L Estimat Glomerular Filtration Rate 54 ML/MIN 85 ML/MIN Lipase 132 U/L Total Protein 6.1 GM/DL Albumin 3.1 GM/DL Alkaline Phosphatase 70 U/L Aspartate Amino Transf (AST/SGOT) 15 U/L Alanine Aminotransferase (ALT/SGPT) 20 U/L Total Bilirubin 0.3 MG/DL Physical Examination HEENT: normocephalic; atraumatic; no jaundice. NECK: Neck is supple, no JVD, no lymphadenopathy. CHEST: Chest is clear to auscultation and percussion. CARDIAC: Regular rate and rhythm with no murmur gallop or rubs. ABDOMEN: Soft, nondistended, nontender;bowel sounds are present in all four quadrants. EXTREMITIES: No clubbing, cyanosis, or edema. SKIN: Normal; no rash; no jaundice. SCHEDULE SUPERVISOR: No focal deficits; alert and oriented times three. (Ramon Zhao) Assessment and Plan Plan - BRBPR- Patient gushing bloody BM at home. Had recurrent episode of BRBPR while in ER. Then had another bloody BM today. patient had similar episode last year, s/p 11/18/15 Flex Sig------> circumferential abnormal mucosa was found in the sigmoid colon , descending, at splenic flexures, and transverse, the mucosa was congested, possible ischemia, no bx done due to being on Birlinta . CT Abd/Pelvis w/ no acute findings. hgb today is 10.0, this is a drop from yesterday. Currently Birlinta on hold. - DM, Htn, cardiac stents per attending Plan: - healthy diet - Colonoscopy on Monday - Cont. to hold Birllianta - monitor hh - Transfuse as needed - cont. Protonix - Notify GI for active bleed - Supportive care - patient seen and examined by Dr. Quiroz and myself and this note is written on his behalf (Ramon Zhao) Physician Comments Seen and examined, plan as above. Will plan colonoscopy once Brillinta held for few days. Will keep under observation for now with serial HH and follow clinically. (Ty Quiroz MD) Ramon Zhao Jun 10, 2017 11:46 Ty Quiroz MD Jun 10, 2017 18:11
--- NOTE | 2017-06-10 14:54 | MB ---
cc: CHRISTOPH GONZALEZ MD DATE OF CONSULTATION: 06/10/2017. HISTORY OF PRESENT ILLNESS: An 88-year-old white female well-known to my practice with a history of hypertension and diabetes mellitus and coronary disease. She developed bright red blood per rectum. She developed rectal bleeding yesterday which was according to the patient profound. She was advised to go to the emergency room. The patient has been on aspirin for her coronary artery disease. She has a previous history of rectal bleeding. She denies any chest pain. She has mild shortness of breath. She has not had any edema. PAST MEDICAL HISTORY: Her past medical history is positive for: 1. Hypertension. 2. Dyslipidemia. 3. Diabetes mellitus. 4. Coronary artery disease. MEDICATIONS: 1. Brilinta. 2. Aspirin. ALLERGIES: 1. CLOPIDOGREL. 2. FISH. SOCIAL HISTORY: The patient smokes. Does not use alcohol. FAMILY HISTORY: Family history is positive for heart disease. REVIEW OF SYSTEMS: The review of systems is otherwise negative. PHYSICAL EXAMINATION: VITAL SIGNS: Blood pressure is 158/77, pulse 87 and regular. HEAD, EYES, EARS, NOSE, THROAT: Negative. NECK: 2+ carotid upstrokes, no bruits. LUNGS: Clear. HEART: Regular rate with no murmurs, rubs or gallops. ABDOMEN: Abdomen soft No bruits. EXTREMITIES: Trace edema, 1 to 2+ distal pulses. NEUROLOGIC: Grossly nonfocal. Telemetry shows sinus rhythm. LABORATORY STUDIES: Hemoglobin is 10.0. Potassium is 3.6, creatinine 0.7, AST and ALT are normal. DIAGNOSIS: 1. Rectal bleeding. 2. Coronary artery disease. 3. Hypertension. 4. Dyslipidemia. DISPOSITION: Flexible sigmoidoscopy showed possible ischemic sigmoid colon. The patient's Brilinta is on hold and she will undergo colonoscopy on Monday. She will be transfused as needed. I will follow her for cardiology during her hospitalization. The plan was discussed with the patient and her family. MD Rob HannaQ/KYLE /2:16 PM /2:33 PM ERIBERTO
[2017-06-10] MEDS ORDERED: POVIDONE IODINE 5% (ANTISEPSIS KIT) 4 APPLICATIONS EACH NARE PRN (18:00)
[2017-06-10] MEDS ORDERED: CHLORHEXIDINE GLUCONATE 2 % 1 PACK (2 CLOTHS) TOPICAL PRN (18:00)
[2017-06-10] MEDS ORDERED: INSULIN HUMAN REGULAR 1,000 UNITS/10 ML VIAL SQ PRN (18:00)
[2017-06-10] MEDS ORDERED: METOPROLOL TARTRATE 25 MG TAB PO PRN (18:00)
[2017-06-10] MEDS ORDERED: SODIUM CHLORID 0.9% 500 ML IV PRN (18:00)
[2017-06-10] MEDS ORDERED: LACTATED RINGER'S 1000 ML IV PRN (18:00)
[2017-06-11] VITALS (11 sets, daily range): BP systolic 148–200; BP diastolic 68–91; PULSE 75–91; RESP 17–20; TEMP 96.4–98; O2SAT 94–99
[2017-06-11] MEDS: PANTOPRAZOLE INJ 80 MG in SODIUM CHLORIDE 0.9% INJ 100 ML IV SCH ×2 (06:20→15:56)
[2017-06-11] MEDS: INSULIN ASPART SUPPLEMENTAL SCALE SQ SCH ×4 (08:00→21:00)
[2017-06-11] MEDS: DOCUSATE SODIUM 50 MG/SENNA 8.6 MG TAB PO SCH ×2 (08:14→21:00)
[2017-06-11] MEDS: SODIUM CHLORIDE 0.9% FLUSH 10 ML FLUSH IV FLUSH SCH ×2 (08:14→21:00)
--- NOTE | 2017-06-11 09:31 | HHI.GIFU ---
Subjective Remarks Pt sitting up in bed, son at bedside. Still having some rectal bleeding with BM and on wipe, no bleeding independent of stool. tolerating diet. (Maru Caruso) Objective Vitals I&O Vital Signs Date Time Temp Pulse Resp B/P (MAP) Pulse Ox O2 Delivery O2 Flow Rate FiO2 06/11/17 08:00 96.4 86 20 175/81 (112) 96 06/11/17 04:18 98.0 86 17 148/68 (94) 94 06/11/17 04:00 84 06/11/17 00:00 90 06/10/17 23:25 98.1 87 17 178/81 (113) 94 06/10/17 20:26 98.0 18 175/77 (109) 95 06/10/17 20:06 84 06/10/17 17:00 86 06/10/17 15:42 97.1 83 20 185/77 (113) 95 06/10/17 12:04 98.4 82 20 168/77 (107) 94 06/10/17 12:00 81 I/O 06/10/17 06/10/17 06/10/17 06/11/17 06/11/17 06/11/17 07:00 15:00 23:00 07:00 15:00 23:00 Intake Total 35 ml 1100 ml 360 ml 1000 ml 240 ml Balance 35 ml 1100 ml 360 ml 1000 ml 240 ml Intake Oral 360 ml 240 ml IV Total 35 ml 1100 ml 1000 ml # Voids 2 1 # Bowel Movements 1 Physical Exam HEENT: PERRL; normocephalic; atraumatic; no jaundice. CHEST: CTA CARDIAC: RRR ABDOMEN: Soft, nondistended, nontender; no hepatosplenomegaly; bowel sounds are present in all four quadrants. EXTREMITIES: No clubbing, cyanosis, or edema. SKIN: Normal; no rash; no jaundice. BALLPOINT PENS ASSEMBLER: No focal deficits; alert and oriented times three. (Maru Caruso) Assessment and Plan Plan - BRBPR- Patient gushing bloody BM at home. Had recurrent episode of BRBPR while in ER. Then had another bloody BM today. patient had similar episode last year, s/p 11/18/15 Flex Sig------> circumferential abnormal mucosa was found in the sigmoid colon , descending, at splenic flexures, and transverse, the mucosa was congested, possible ischemia, no bx done due to being on Birlinta . CT Abd/Pelvis w/ no acute findings. today's labs pending - DM, Htn, cardiac stents per attending Plan: - healthy diet - Colonoscopy on Monday - clear liquids monday - NPO after midnight Monday night - mg citrate prep Monday - Cont. to hold Birllianta - monitor hh - Transfuse as needed - cont. Protonix - Notify GI for active bleed - Supportive care - patient seen and examined by Dr. Quiroz and myself and this note is written on his behalf (Maru Caruso) Physician Comments As above, will plan Colonoscopy Monday. (Ty Quiroz MD) Maru Caruso Jun 11, 2017 09:30 Ty Quiroz MD Jun 11, 2017 15:32
[2017-06-11 10:55] LABS: AUTOMATED NEUTROPHIL # 2.9 TH/MM3 (1.8-7.7); EOSINOPHIL # 0.2 TH/MM3 (0-0.4); EOSINOPHIL % 3.3 % (0.0-4.0); HEMATOCRIT 29.1 % (35.0-46.0); HEMOGLOBIN 9.8 GM/DL (11.6-15.3); LYMPH % 24.3 % (9.0-44.0); LYMPHOCYTE # 1.2 TH/MM3 (1.0-4.8); MEAN CELL VOLUME 79.3 FL (80.0-100.0); MEAN CORPUSCULAR HEMOGLOBIN 26.7 PG (27.0-34.0); MEAN CORPUSCULAR HGB CONC 33.7 % (32.0-36.0); MEAN PLATELET VOLUME 8.9 FL (7.0-11.0); MONO % 9.6 % (0.0-8.0); MONOCYTE # 0.5 TH/MM3 (0-0.9); NEUT % 61.8 % (16.0-70.0); PLATELET COUNT 190 TH/MM3 (150-450); RED BLOOD COUNT 3.67 MIL/MM3 (4.00-5.30); RED CELL DISTRIBUTION WIDTH 14.7 % (11.6-17.2); WHITE BLOOD COUNT 4.8 TH/MM3 (4.0-11.0)
[2017-06-11] MEDS: SODIUM CHLOR 0.9% 1000 ML INJ 1,000 ML IV SCH ×3 (10:57→21:05)
--- NOTE | 2017-06-11 11:13 | HHI.PR ---
Subjective Remarks Patient reports she is feeling better. She had one episode of small bright red blood per rectum today after a bowel movement. No lightheadedness or chest pain. Objective Vitals Vital Signs Date Time Temp Pulse Resp B/P (MAP) Pulse Ox O2 Delivery O2 Flow Rate FiO2 06/11/17 08:03 83 06/11/17 08:00 96.4 86 20 175/81 (112) 96 06/11/17 04:18 98.0 86 17 148/68 (94) 94 06/11/17 04:00 84 06/11/17 00:00 90 06/10/17 23:25 98.1 87 17 178/81 (113) 94 06/10/17 20:26 98.0 18 175/77 (109) 95 06/10/17 20:06 84 06/10/17 17:00 86 06/10/17 15:42 97.1 83 20 185/77 (113) 95 06/10/17 12:04 98.4 82 20 168/77 (107) 94 06/10/17 12:00 81 I/O 06/10/17 06/10/17 06/10/17 06/11/17 06/11/17 06/11/17 07:00 15:00 23:00 07:00 15:00 23:00 Intake Total 35 ml 1100 ml 360 ml 1000 ml 1240 ml Balance 35 ml 1100 ml 360 ml 1000 ml 1240 ml Intake Oral 360 ml 240 ml IV Total 35 ml 1100 ml 1000 ml 1000 ml # Voids 2 1 # Bowel Movements 1 Result Diagram: 06/11/17 1041 06/10/17 0821 Imaging Last Impressions Abdomen/Pelvis CT 06/09/17 0000 Signed Impressions: Service Date/Time: Friday, June 09, 2017 23:43 - CONCLUSION: No acute CT findings in the abdomen or pelvis. Morgan Boyer MD Objective Remarks GENERAL: This is a well-nourished, well-developed patient, in no apparent distress. CARDIOVASCULAR: Normal rate and regular rhythm without murmurs, gallops, or rubs. RESPIRATORY: Good respiratory efforts. Breath sounds equal and clear to auscultation bilaterally. GASTROINTESTINAL: Abdomen soft, non-tender, non-distended. Normal active bowel sounds MUSCULOSKELETAL: Extremities without cyanosis, or edema. NEURO: Alert & Oriented x4 to person, place, time, situation. Moves all ext x4 PSYCH: Appropriate mood and affect. A/P Problem List: (1) Rectal bleed ICD Code: K62.5 - Hemorrhage of anus and rectum (2) HTN (hypertension) ICD Code: I10 - Essential (primary) hypertension Status: Acute (3) DM (diabetes mellitus) ICD Code: E11.9 - Type 2 diabetes mellitus without complications Assessment and Plan 86-year-old female presented with rectal bleeding Acute bright red blood per rectum: -Persistent. H/o similar symptoms 11/18/15 s/p Flex Sig, bleed likely secondary to colonic ischemia from hypovolemia after gastroenteritis. -Hemoglobin 11.6 dropped to 10. -Appreciate GI following. - Plan for colonoscopy on Monday. Brilinta is on hold. Coronary artery disease: - Cardiology on board. Continue statin. Brilinta on hold for colonoscopy HTN: -Restart home antihypertensives. DM: Sliding scale w/ Accu-Cheks. DVT Prophylaxis: SCD/Teds. Janie Harris MD Jun 11, 2017 11:13
[2017-06-11 11:24] LABS: BICARBONATE 26.7 MEQ/L (21.0-32.0); CALCIUM 8.2 MG/DL (8.5-10.1); CREATININE 0.64 MG/DL (0.50-1.00)
[2017-06-11] MEDS: LISINOPRIL 5 MG TAB PO SCH (15:47)
--- NOTE | 2017-06-11 17:14 | PD.CARD.PN ---
Subjective Subjective Remarks No CP or SOB, still with mild rectal bleeding Objective Medications Current Medications Medications (Trade) Dose Ordered Sig/Noemi Route Start Time Stop Time Status Last Admin Pantoprazole Sodium 80 mg/ Sodium Chloride 100 ml @ 10 mls/hr Q10H IV 06/09/17 22:24 06/11/17 15:56 (D50w (Vial) Inj) 50 ml UNSCH PRN IV PUSH 06/10/17 01:00 (Glucagon Inj) 1 mg UNSCH PRN OTHER 06/10/17 01:00 (NovoLOG SUPPLEMENTAL SCALE) 1 ACHS SLIDING SCALE SQ 06/10/17 08:00 Sodium Chloride 1,000 ml @ 100 mls/hr Q10H IV 06/10/17 01:00 06/11/17 10:57 (NS Flush) 2 ml UNSCH PRN IV FLUSH 06/10/17 01:00 (NS Flush) 2 ml BID IV FLUSH 06/10/17 09:00 (Zofran Inj) 4 mg Q6H PRN IVP 06/10/17 01:00 (Tylenol) 650 mg Q6H PRN PO 06/10/17 01:00 ([place] 5-325 Mg) 1 tab Q4H PRN PO 06/10/17 01:00 ([place] 10-325 Mg) 1 tab Q4H PRN PO 06/10/17 01:00 (Nolvia-Colace) 1 tab BID PO 06/10/17 09:00 (Milk Of Magnesia Liq) 30 ml Q12H PRN PO 06/10/17 01:00 (Senokot) 17.2 mg Q12H PRN PO 06/10/17 01:00 (Dulcolax Supp) 10 mg DAILY PRN RECTAL 06/10/17 01:00 (Lactulose Liq) 30 ml DAILY PRN PO 06/10/17 01:00 Lactated Ringer's 1,000 ml @ 30 mls/hr Q24H PRN IV 06/10/17 18:00 06/13/17 17:59 Sodium Chloride 500 ml @ 30 mls/hr [id number] PRN IV 06/10/17 18:00 06/13/17 17:59 (Lopressor) 25 mg PURCHASE REQUEST EDITOR PRN PO 06/10/17 18:00 12/26/17 17:59 (Betadine 5% Antisepsis Kit) 1 applic PURCHASE REQUEST EDITOR PRN EACH NARE 06/10/17 18:00 06/13/17 17:59 (Chlorhexidine 2% Cloth) 3 pack PURCHASE REQUEST EDITOR PRN TOPICAL 06/10/17 18:00 06/13/17 17:59 (NovoLIN R INJ) See Protocol Table ... PURCHASE REQUEST EDITOR PRN SQ 06/10/17 18:00 06/13/17 17:59 (Citroma Liq) 300 ml ONCE ONCE PO 06/12/17 16:00 06/12/17 16:01 (Citroma Liq) 300 ml ONCE ONCE PO 06/12/17 18:00 06/12/17 18:01 (Lopressor) 50 mg Q12HR PO 06/11/17 21:00 (Prinivil) 5 mg DAILY PO 06/11/17 15:15 06/11/17 15:47 (Pravachol) 40 mg HS PO 06/11/17 21:00 (Catapres) 0.1 mg Q6H PRN PO 06/11/17 15:15 Vital Signs / I&O Vital Signs Date Time Temp Pulse Resp B/P (MAP) Pulse Ox O2 Delivery O2 Flow Rate FiO2 06/11/17 16:04 83 06/11/17 16:00 97.8 87 20 169/69 (102) 96 06/11/17 12:05 75 06/11/17 12:00 97.5 84 20 170/79 (109) 96 06/11/17 08:03 83 06/11/17 08:00 96.4 86 20 175/81 (112) 96 06/11/17 04:18 98.0 86 17 148/68 (94) 94 06/11/17 04:00 84 06/11/17 00:00 90 06/10/17 23:25 98.1 87 17 178/81 (113) 94 06/10/17 20:26 98.0 18 175/77 (109) 95 06/10/17 20:06 84 I/O 06/10/17 06/10/17 06/10/17 06/11/17 06/11/17 06/11/17 07:00 15:00 23:00 07:00 15:00 23:00 Intake Total 35 ml 1100 ml 360 ml 1000 ml 1240 ml Balance 35 ml 1100 ml 360 ml 1000 ml 1240 ml Intake Oral 360 ml 240 ml IV Total 35 ml 1100 ml 1000 ml 1000 ml # Voids 2 1 5 1 # Bowel Movements 1 0 Physical Exam GENERAL: In NAD SKIN: Warm and dry. HEAD: Normocephalic. EYES: No scleral icterus. No injection or drainage. NECK: Supple, trachea midline. No JVD or lymphadenopathy. CARDIOVASCULAR: Regular rate and rhythm without murmurs, gallops, or rubs. RESPIRATORY: Breath sounds equal bilaterally. No accessory muscle use. GASTROINTESTINAL: Abdomen soft, non-tender, nondistended. MUSCULOSKELETAL: No cyanosis, or edema. Laboratory Laboratory Tests Test 06/11/17 10:41 White Blood Count 4.8 TH/MM3 Red Blood Count 3.67 MIL/MM3 Hemoglobin 9.8 GM/DL Hematocrit 29.1 % Mean Corpuscular Volume 79.3 FL Mean Corpuscular Hemoglobin 26.7 PG Mean Corpuscular Hemoglobin Concent 33.7 % Red Cell Distribution Width 14.7 % Platelet Count 190 TH/MM3 Mean Platelet Volume 8.9 FL Neutrophils (%) (Auto) 61.8 % Lymphocytes (%) (Auto) 24.3 % Monocytes (%) (Auto) 9.6 % Eosinophils (%) (Auto) 3.3 % Basophils (%) (Auto) 1.0 % Neutrophils # (Auto) 2.9 TH/MM3 Lymphocytes # (Auto) 1.2 TH/MM3 Monocytes # (Auto) 0.5 TH/MM3 Eosinophils # (Auto) 0.2 TH/MM3 Basophils # (Auto) 0.0 TH/MM3 CBC Comment DIFF FINAL Differential Comment Blood Urea Nitrogen 13 MG/DL Creatinine 0.64 MG/DL Random Glucose 173 MG/DL Calcium Level 8.2 MG/DL Sodium Level 140 MEQ/L Potassium Level 3.8 MEQ/L Chloride Level 108 MEQ/L Carbon Dioxide Level 26.7 MEQ/L Anion Gap 5 MEQ/L Estimat Glomerular Filtration Rate 88 ML/MIN Assessment and Plan Problem List: (1) Rectal bleed ICD Codes: K62.5 - Hemorrhage of anus and rectum (2) CAD (coronary artery disease) ICD Codes: I25.10 - Atherosclerotic heart disease of [place] coronary artery without angina pectoris (3) HTN (hypertension) ICD Codes: I10 - Essential (primary) hypertension Status: Acute (4) DM (diabetes mellitus) ICD Codes: E11.9 - Type 2 diabetes mellitus without complications Assessment and Plan No angina or CHF symptoms. Remains stable from cardiac standpoint. GI eval in progress. Colonoscopy planned on Mon. Calvin Crump MD Jun 11, 2017 17:14
[2017-06-11] MEDS: METOPROLOL TARTRATE 50 MG TAB PO SCH (21:03)
[2017-06-11] MEDS: PRAVASTATIN SOD 40 MG TAB PO SCH (21:03)
[2017-06-12] VITALS (9 sets, daily range): BP systolic 163–188; BP diastolic 73–88; PULSE 64–84; RESP 16–17; TEMP 97.1–98.2; O2SAT 94–96
[2017-06-12] MEDS: PANTOPRAZOLE INJ 80 MG in SODIUM CHLORIDE 0.9% INJ 100 ML IV SCH ×3 (03:15→21:38)
[2017-06-12] MEDS: cloNIDine HCL 0.1 MG TAB PO PRN ×4 (03:17→16:43)
[2017-06-12 07:18] LABS: HEMATOCRIT 28.6 % (35.0-46.0); HEMOGLOBIN 9.8 GM/DL (11.6-15.3); MEAN CELL VOLUME 78.9 FL (80.0-100.0); MEAN CORPUSCULAR HGB CONC 34.2 % (32.0-36.0); MEAN PLATELET VOLUME 9.1 FL (7.0-11.0); PLATELET COUNT 193 TH/MM3 (150-450); RED BLOOD COUNT 3.63 MIL/MM3 (4.00-5.30); RED CELL DISTRIBUTION WIDTH 14.8 % (11.6-17.2); WHITE BLOOD COUNT 5.8 TH/MM3 (4.0-11.0)
[2017-06-12 07:48] LABS: BICARBONATE 26.1 MEQ/L (21.0-32.0); CALCIUM 8.6 MG/DL (8.5-10.1); CREATININE 0.56 MG/DL (0.50-1.00)
[2017-06-12] MEDS: INSULIN ASPART SUPPLEMENTAL SCALE SQ SCH ×4 (07:59→20:18)
[2017-06-12] MEDS: DOCUSATE SODIUM 50 MG/SENNA 8.6 MG TAB PO SCH ×2 (08:02→20:15)
[2017-06-12] MEDS: LISINOPRIL 5 MG TAB PO SCH (08:05)
[2017-06-12] MEDS: METOPROLOL TARTRATE 50 MG TAB PO SCH ×2 (08:05→20:16)
[2017-06-12] MEDS: SODIUM CHLORIDE 0.9% FLUSH 10 ML FLUSH IV FLUSH SCH ×2 (09:00→20:22)
[2017-06-12] MEDS: SODIUM CHLOR 0.9% 1000 ML INJ 1,000 ML IV SCH ×2 (13:00→21:38)
--- NOTE | 2017-06-12 13:00 | HHI.PR ---
Subjective Remarks Patient is seen and evaluated in the presence of her purchasing and claims supervisor. She complains of nothing today. She has not seen any further bleeding. No further issues Brillinta still held Objective Vitals Vital Signs Date Time Temp Pulse Resp B/P (MAP) Pulse Ox O2 Delivery O2 Flow Rate FiO2 06/12/17 12:00 97.3 64 17 163/73 (103) 96 06/12/17 08:00 98.2 75 16 183/77 (112) 95 06/12/17 04:00 70 06/12/17 04:00 97.1 82 17 188/88 (121) 94 06/12/17 00:00 98.0 69 16 184/78 (113) 96 06/11/17 20:00 96.9 91 17 190/90 (123) 99 06/11/17 18:02 97.4 79 20 200/91 (127) 98 06/11/17 16:04 83 06/11/17 16:00 97.8 87 20 169/69 (102) 96 I/O 06/11/17 06/11/17 06/11/17 06/12/17 06/12/17 06/12/17 07:00 15:00 23:00 07:00 15:00 23:00 Intake Total 1000 ml 1240 ml 1051 ml 1651 ml Balance 1000 ml 1240 ml 1051 ml 1651 ml Intake Oral 240 ml 720 ml IV Total 1000 ml 1000 ml 1051 ml 931 ml # Voids 1 5 1 2 # Bowel Movements 0 Result Diagram: 06/12/1730 06/12/17 0630 Objective Remarks GENERAL: This is a well-nourished, well-developed patient, in no apparent distress. CARDIOVASCULAR: Regular rate and rhythm without murmurs, gallops, or rubs. RESPIRATORY: Clear to auscultation. Breath sounds equal bilaterally. No wheezes , rales, or rhonchi. GASTROINTESTINAL: Abdomen soft, non-tender, nondistended. Normal active bowel sounds MUSCULOSKELETAL: Extremities without clubbing, cyanosis, or edema. NEURO: Alert & Oriented x4 to person, place, time, situation. Moves all ext x4 A/P Problem List: (1) Rectal bleed ICD Code: K62.5 - Hemorrhage of anus and rectum Plan: Hemoglobin is stable, endoscopy in a.m. (2) HTN (hypertension) ICD Code: I10 - Essential (primary) hypertension Status: Acute Plan: Currently controlled (3) DM (diabetes mellitus) ICD Code: E11.9 - Type 2 diabetes mellitus without complications Plan: Currently controlled on current regimen (4) CAD (coronary artery disease) ICD Code: I25.10 - Atherosclerotic heart disease of [place] coronary artery without angina pectoris Plan: Patient's Brillinta has been held, cardiology consult appreciated Discharge Planning Home pending anoscopy in Kelsie Gross MD Jun 12, 2017 13:00
[2017-06-12] MEDS ORDERED: MAGNESIUM CITRATE SOLN 300 ML BTL PO ONE ×2 (16:00→18:00)
[2017-06-12] MEDS: PRAVASTATIN SOD 40 MG TAB PO SCH (20:16)
[2017-06-12] MEDS ORDERED: LISINOPRIL 5 MG TAB PO ONE (20:45)
--- NOTE | 2017-06-12 20:46 | PD.CARD.PN ---
Subjective Subjective Remarks No CP or SOB, hypertensive Objective Medications Current Medications Medications (Trade) Dose Ordered Sig/Noemi Route Start Time Stop Time Status Last Admin Pantoprazole Sodium 80 mg/ Sodium Chloride 100 ml @ 10 mls/hr Q10H IV 06/09/17 22:24 06/12/17 10:24 (D50w (Vial) Inj) 50 ml UNSCH PRN IV PUSH 06/10/17 01:00 (Glucagon Inj) 1 mg UNSCH PRN OTHER 06/10/17 01:00 (NovoLOG SUPPLEMENTAL SCALE) 1 ACHS SLIDING SCALE SQ 06/10/17 08:00 Sodium Chloride 1,000 ml @ 100 mls/hr Q10H IV 06/10/17 01:00 06/12/17 13:00 (NS Flush) 2 ml UNSCH PRN IV FLUSH 06/10/17 01:00 (NS Flush) 2 ml BID IV FLUSH 06/10/17 09:00 06/12/17 20:22 (Zofran Inj) 4 mg Q6H PRN IVP 06/10/17 01:00 (Tylenol) 650 mg Q6H PRN PO 06/10/17 01:00 ([place] 5-325 Mg) 1 tab Q4H PRN PO 06/10/17 01:00 ([place] 10-325 Mg) 1 tab Q4H PRN PO 06/10/17 01:00 (Nolvia-Colace) 1 tab BID PO 06/10/17 09:00 06/12/17 20:15 (Milk Of Magnesia Liq) 30 ml Q12H PRN PO 06/10/17 01:00 (Senokot) 17.2 mg Q12H PRN PO 06/10/17 01:00 (Dulcolax Supp) 10 mg DAILY PRN RECTAL 06/10/17 01:00 (Lactulose Liq) 30 ml DAILY PRN PO 06/10/17 01:00 Lactated Ringer's 1,000 ml @ 30 mls/hr Q24H PRN IV 06/10/17 18:00 06/13/17 17:59 Sodium Chloride 500 ml @ 30 mls/hr [id number] PRN IV 06/10/17 18:00 06/13/17 17:59 (Lopressor) 25 mg SPOOLING OPERATOR PRN PO 06/10/17 18:00 06/13/17 17:59 (Betadine 5% Antisepsis Kit) 1 applic SPOOLING OPERATOR PRN EACH NARE 06/10/17 18:00 06/13/17 17:59 (Chlorhexidine 2% Cloth) 3 pack SPOOLING OPERATOR PRN TOPICAL 06/10/17 18:00 06/13/17 17:59 (NovoLIN R INJ) See Protocol Table ... SPOOLING OPERATOR PRN SQ 06/10/17 18:00 06/13/17 17:59 (Lopressor) 50 mg Q12HR PO 06/11/17 21:00 06/12/17 20:16 (Prinivil) 5 mg DAILY PO 06/11/17 15:15 06/12/17 08:05 (Pravachol) 40 mg HS PO 06/11/17 21:00 06/12/17 20:16 (Catapres) 0.1 mg Q6H PRN PO 06/11/17 15:15 Vital Signs / I&O Vital Signs Date Time Temp Pulse Resp B/P (MAP) Pulse Ox O2 Delivery O2 Flow Rate FiO2 06/12/17 16:00 97.1 70 16 170/73 (105) 95 06/12/17 15:27 64 06/12/17 14:50 64 06/12/17 12:00 97.3 64 17 163/73 (103) 96 06/12/17 08:00 98.2 75 16 183/77 (112) 95 06/12/17 04:00 70 06/12/17 04:00 97.1 82 17 188/88 (121) 94 06/12/17 00:00 98.0 69 16 184/78 (113) 96 I/O 06/11/17 06/11/17 06/11/17 06/12/17 06/12/17 06/12/17 07:00 15:00 23:00 07:00 15:00 23:00 Intake Total 1000 ml 1240 ml 1051 ml 1651 ml 120 ml Balance 1000 ml 1240 ml 1051 ml 1651 ml 120 ml Intake Oral 240 ml 720 ml 120 ml IV Total 1000 ml 1000 ml 1051 ml 931 ml # Voids 1 5 1 2 5 # Bowel Movements 0 1 Physical Exam GENERAL: In NAD SKIN: Warm and dry. HEAD: Normocephalic. EYES: No scleral icterus. No injection or drainage. NECK: Supple, trachea midline. No JVD or lymphadenopathy. CARDIOVASCULAR: Regular rate and rhythm without murmurs, gallops, or rubs. RESPIRATORY: Breath sounds equal bilaterally. No accessory muscle use. GASTROINTESTINAL: Abdomen soft, non-tender, nondistended. MUSCULOSKELETAL: No cyanosis, or edema. Laboratory Laboratory Tests Test 06/12/17 06:30 White Blood Count 5.8 TH/MM3 Red Blood Count 3.63 MIL/MM3 Hemoglobin 9.8 GM/DL Hematocrit 28.6 % Mean Corpuscular Volume 78.9 FL Mean Corpuscular Hemoglobin 27.0 PG Mean Corpuscular Hemoglobin Concent 34.2 % Red Cell Distribution Width 14.8 % Platelet Count 193 TH/MM3 Mean Platelet Volume 9.1 FL Blood Urea Nitrogen 14 MG/DL Creatinine 0.56 MG/DL Random Glucose 152 MG/DL Calcium Level 8.6 MG/DL Sodium Level 139 MEQ/L Potassium Level 3.6 MEQ/L Chloride Level 107 MEQ/L Carbon Dioxide Level 26.1 MEQ/L Anion Gap 6 MEQ/L Estimat Glomerular Filtration Rate 103 ML/MIN Assessment and Plan Problem List: (1) Rectal bleed ICD Codes: K62.5 - Hemorrhage of anus and rectum (2) CAD (coronary artery disease) ICD Codes: I25.10 - Atherosclerotic heart disease of [place] coronary artery without angina pectoris (3) HTN (hypertension) ICD Codes: I10 - Essential (primary) hypertension Status: Acute (4) DM (diabetes mellitus) ICD Codes: E11.9 - Type 2 diabetes mellitus without complications Assessment and Plan No angina or CHF symptoms. Hypertensive, will increase lisinopril dose. Otherwise remains stable from cardiac standpoint. GI eval in progress. Colonoscopy planned tomorrow. Calvin Crump MD Jun 12, 2017 20:46
[2017-06-13] VITALS (8 sets, daily range): BP systolic 145–183; BP diastolic 66–86; PULSE 58–76; RESP 16–18; TEMP 96.9–97.5; O2SAT 95–99
[2017-06-13] MEDS ORDERED: LACTATED RINGER'S 1000 ML IV PRN (03:00)
[2017-06-13] MEDS: PANTOPRAZOLE INJ 80 MG in SODIUM CHLORIDE 0.9% INJ 100 ML IV SCH (06:24)
[2017-06-13] MEDS: METOPROLOL TARTRATE 50 MG TAB PO SCH (06:54)
[2017-06-13] MEDS: INSULIN ASPART SUPPLEMENTAL SCALE SQ SCH ×2 (07:41→11:59)
[2017-06-13] MEDS ORDERED: LISINOPRIL 10 MG TAB PO SCH (09:00)
[2017-06-13] MEDS: SODIUM CHLOR 0.9% 1000 ML INJ 1,000 ML IV SCH (09:00)
[2017-06-13] MEDS: DOCUSATE SODIUM 50 MG/SENNA 8.6 MG TAB PO SCH (09:00)
[2017-06-13] MEDS: SODIUM CHLORIDE 0.9% FLUSH 10 ML FLUSH IV FLUSH SCH (09:00)
--- NOTE | 2017-06-13 09:02 | GIPROC ---
[facility] [address] [facility]. [facility], [address] COLONOSCOPY PROCEDURE REPORT EXAM DATE: 06/13/2017 PATIENT NAME: Iqra Pacheco MR #: [id number] BIRTHDATE: 1930 ENDOSCOPIST: Ty Quiroz MD ORDER #: [id number] METAL REED TUNER: Jerrica Chaudhary and Ayla Brown STATUS: inpatient INDICATIONS: The patient is a 86 yr old female here for a colonoscopy due to rectal bleeding PROCEDURE PERFORMED: Colonoscopy, diagnostic MEDICATIONS: None and Per Anesthesia. PREP QUALITY: poor ESTIMATED BLOOD LOSS: None CONSENT: The patient understands the risks and benefits of the procedure and understands that these risks include, but are not limited to: sedation, allergic reaction, infection, perforation and/or bleeding. Alternative means of evaluation and treatment include, among others: physical exam, x-rays, and/or surgical intervention. The patient elects to proceed with this endoscopic procedure. medical equipment was checked for proper function. Hand hygiene and appropriate measures for infection prevention was taken. After the risks, benefits and alternatives of the procedure were thoroughly explained, Informed consent was verified, confirmed and timeout was successfully executed by the treatment team. A digital exam The Pentax [id number] endoscope was introduced through the anus and advanced to the cecum, which was identified by both the appendix and ileocecal valve. The instrument was then slowly withdrawn as the colon was fully examined. COLON FINDINGS: There was severe diverticulosis noted in the sigmoid colon and descending colon with associated tortuosity. A significant amount of stool was present throughout the entire examined colon. Large internal hemorrhoids were found. Retroflexed views revealed internal hemorrhoids and Retroflexed views revealed large internal hemorrhoids The scope was then completely withdrawn from the patient and the procedure terminated. PROCEDURE WITHDRAWAL TIME:9minutes ADVERSE EVENTS: There were no complications. IMPRESSIONS: 1. There was severe diverticulosis noted in the sigmoid colon and descending colon 2. Significant amount of stool was present throughout the entire examined colon, limiting the exam, small lesion/ polyp would be missed secondary to poor prep. 3. Large internal hemorrhoids RECOMMENDATIONS: 1. High fiber diet 2. No seeds, nuts and popcorn in diet RECALL: Return 5 years Colonoscopy Ty Quiroz MD eSigned: Ty Quiroz MD 06/13/2017 9:01 AM cc:
[2017-06-13] MEDS ORDERED: DO NOT ADM ANY ANTICOAGULANT DRUGS PRN (09:45)
[2017-06-13] MEDS ORDERED: MIRA3350 PO (11:34)
--- NOTE | 2017-06-13 11:35 | HHI.DS ---
Discharge Summary Admission Date Jun 11, 2017 at 08:52 Discharge Date: Jun 13, 2017 Admitting Diagnosis GI bleed (1) Rectal bleed ICD Code: K62.5 - Hemorrhage of anus and rectum (2) HTN (hypertension) ICD Code: I10 - Essential (primary) hypertension Status: Acute (3) DM (diabetes mellitus) ICD Code: E11.9 - Type 2 diabetes mellitus without complications (4) CAD (coronary artery disease) ICD Code: I25.10 - Atherosclerotic heart disease of [place] coronary artery without angina pectoris Procedures Lower endoscopy: Hemorrhoids, diverticulosis Brief History - From Admission This is an 86-year-old female with a PMH of HTN, Hyperlipidemia, DM and CAD who presented ER with complaints of bright red blood per rectum. Patient states she had sudden episode of rectal bleeding, reports blood was "gushing" out. Had recurrent episode of BRBPR while in ER. Denies h/o similar symptoms. On ASA only. On arrival, BP 142/68, HR 132, O2 sat 98% on RA, Afebrile. Hemoglobin 11.6, previously 9.9 on 11/21/15. Chemistry essentially unremarkable INR 1.0. UA negative. CT Abd/Pelvis w/ no acute findings. CBC/BMP: 06/12/17 0630 06/12/17 0630 Significant Findings Laboratory Tests Test 06/11/17 10:41 06/12/17 06:30 Red Blood Count 3.67 MIL/MM3 (4.00-5.30) 3.63 MIL/MM3 (4.00-5.30) Hemoglobin 9.8 GM/DL (11.6-15.3) 9.8 GM/DL (11.6-15.3) Hematocrit 29.1 % (35.0-46.0) 28.6 % (35.0-46.0) Mean Corpuscular Volume 79.3 FL (80.0-100.0) 78.9 FL (80.0-100.0) Mean Corpuscular Hemoglobin 26.7 PG (27.0-34.0) Monocytes (%) (Auto) 9.6 % (0.0-8.0) Random Glucose 173 MG/DL (74-106) 152 MG/DL (74-106) Calcium Level 8.2 MG/DL (8.5-10.1) Chloride Level 108 MEQ/L (98-107) Estimat Glomerular Filtration Rate 88 ML/MIN (>89) Imaging Last Impressions Abdomen/Pelvis CT 06/09/17 0000 Signed Impressions: Service Date/Time: Friday, June 09, 2017 23:43 - CONCLUSION: No acute CT findings in the abdomen or pelvis. Morgan Boyer MD PE at Discharge GENERAL: This is a well-nourished, well-developed patient, in no apparent distress. CARDIOVASCULAR: Regular rate and rhythm without murmurs, gallops, or rubs. RESPIRATORY: Clear to auscultation. Breath sounds equal bilaterally. No wheezes , rales, or rhonchi. GASTROINTESTINAL: Abdomen soft, non-tender, nondistended. Normal active bowel sounds MUSCULOSKELETAL: Extremities without clubbing, cyanosis, or edema. NEURO: Alert & Oriented x4 to person, place, time, situation. Moves all ext x4 Pt update on day of discharge Patient seen in room today. Discharge plans discussed with patient as well as nursing team. No new events overnight.. Hospital Course This patient is a very pleasant 86-year-old female with a history of atrial fibrillation. She did have some blood per rectum and was found on endoscopy to have hemorrhoids. Patient had been on brillinta and aspirin. This was held and she was seen by a shirt bander prior to her procedure Pt Condition on Discharge: Good Discharge Disposition: Discharge Home Discharge Time: <= 30 minutes Discharge Instructions DIET: Follow Instructions for: Heart Healthy Diet Activities you can perform: Regular-No Restrictions Follow up Referrals: Cardiology with Calvin Crump MD New Medications: Polyethylene Glycol 3350 Powder (Miralax Powder) 17 Gm Powd 17 GM PO DAILY for Constipation, #1 CAN 0 Refills Mix and dissolve one measuring cap-ful (17 grams) in water or juice. Continued Medications: Aspirin (Aspirin) 81 Mg Chew 81 MG CHEW DAILY, TAB 0 Refills Ticagrelor (Brilinta) 90 Mg Tab 90 MG PO BID for Blood Clot Prevention, #60 TAB 0 Refills Kelsie Gillespie MD Jun 13, 2017 11:35
--- NOTE | 2017-06-13 11:36 | HHI.DCPOC ---
Discharge Care Plan Diagnosis: (1) Bleeding hemorrhoid Goals to Promote Your Health * To prevent worsening of your condition and complications * To maintain your health at the optimal level Directions to Meet Your Goals Take your medications as prescribed Follow your dietary instruction Follow activity as directed Keep your appointments as scheduled Take your immunizations and boosters as scheduled If your symptoms worsen call your PCP, if no PCP go to Urgent Care Center or Emergency Room Smoking is Dangerous to Your Health. Avoid second hand smoke Call the 24-hour hour crisis hotline for domestic abuse at Kelsie Gillespie MD Jun 13, 2017 11:36
[2017-06-13] MEDS ORDERED: EPINEPHrine HCL (1:1000) 1 MG/ML VIAL IV ONE (12:00)
[2017-06-13] MEDS ORDERED: LIDOCAINE HCL 1% PF 5 ML SYRINGE OTHER ONE (12:00)
[2017-06-13] MEDS ORDERED: PROPOFOL 200 MG/20 ML AMP IV ONE (12:00)
[2017-06-13] MEDS ORDERED: ROCURONIUM INJ 50 MG/5 ML SYRINGE IV PUSH ONE (12:00)
--- NOTE | 2017-06-13 14:53 | PD.CARD.PN ---
Subjective Subjective Remarks No CP or SOB, feels fine, colonoscopy c/w hemorrhoids Objective Vital Signs / I&O Vital Signs Date Time Temp Pulse Resp B/P (MAP) Pulse Ox O2 Delivery O2 Flow Rate FiO2 06/13/17 11:59 63 06/13/17 10:00 67 183/76 (111) 06/13/17 09:00 97.0 57 18 134/82 (99) 99 Room Air 06/13/17 07:34 97.5 76 18 145/86 (105) 95 06/13/17 04:39 97.5 73 16 171/66 (101) 95 06/13/17 03:55 60 06/13/17 00:11 58 06/13/17 00:00 96.9 71 16 157/77 (103) 98 06/12/17 20:02 84 06/12/17 20:00 97.2 76 16 165/75 (105) 95 06/12/17 16:00 97.1 70 16 170/73 (105) 95 06/12/17 15:27 64 I/O 06/12/17 06/12/17 06/12/17 06/13/17 06/13/17 06/13/17 07:00 15:00 23:00 07:00 15:00 23:00 Intake Total 1651 ml 1220 ml 400 ml Balance 1651 ml 1220 ml 400 ml Intake Oral 720 ml 120 ml IV Total 931 ml 1100 ml Other 400 ml # Voids 2 5 2 # Bowel Movements 1 Physical Exam GENERAL: In NAD SKIN: Warm and dry. HEAD: Normocephalic. EYES: No scleral icterus. No injection or drainage. NECK: Supple, trachea midline. No JVD or lymphadenopathy. CARDIOVASCULAR: Regular rate and rhythm without murmurs, gallops, or rubs. RESPIRATORY: Breath sounds equal bilaterally. No accessory muscle use. GASTROINTESTINAL: Abdomen soft, non-tender, nondistended. MUSCULOSKELETAL: No cyanosis, or edema. Assessment and Plan Problem List: (1) Rectal bleed ICD Codes: K62.5 - Hemorrhage of anus and rectum (2) CAD (coronary artery disease) ICD Codes: I25.10 - Atherosclerotic heart disease of [place] coronary artery without angina pectoris (3) HTN (hypertension) ICD Codes: I10 - Essential (primary) hypertension Status: Acute (4) DM (diabetes mellitus) ICD Codes: E11.9 - Type 2 diabetes mellitus without complications Assessment and Plan Colonscopy shows hemorrhoids. No angina or CHF symptoms. Remains stable from cardiac standpoint. DC home. Will schedule f/u in our office as outpatient. Calvin Crump MD Jun 13, 2017 14:53
--- NOTE | 2017-06-13 17:32 | EKG ---
Date Performed: 06/13/2017 Time Performed: 07:05:19 PTAGE: 86 years EKG: Sinus rhythm Since previous tracing, no significant change noted NORMAL ECG PREVIOUS TRACING : 11/16/2015 22.26 DOCTOR: Talia Watts Interpretating Date/Time 06/13/2017 17:31:28
== END 2017-06-13 14:14 | disposition home or self-care (01) | DRG 379 ==
LOC: NEPE 21:34 → NEDA 06-10 00:36 → NEPFCDU 06-10 02:28 → OBSVTOIN 06-11 08:52 → N07B 06-11 17:53
PROVIDERS: ADMIT Hospitalist; ATTEND Hospitalist
PROC: 0DJD8ZZ Inspection of Lower Intestinal Tract, Via Natural or Artificial Opening Endoscopic (ICD-10-PCS; principal; 2017-06-13 08:23)
DX: K57.31 Diverticulosis of large intestine without perforation or abscess with bleeding (principal); I48.91 Unspecified atrial fibrillation; E11.9 Type 2 diabetes mellitus without complications; I10 Essential (primary) hypertension; I25.10 Atherosclerotic heart disease of native coronary artery without angina pectoris; K64.8 Other hemorrhoids; M19.90 Unspecified osteoarthritis, unspecified site; E78.5 Hyperlipidemia, unspecified; F17.200 Nicotine dependence, unspecified, uncomplicated; Z79.82 Long term (current) use of aspirin; Z95.5 Presence of coronary angioplasty implant and graft
CPT/HCPCS: 74177; 80048; 80053; 81001; 82948; 83690; 85025; 85027; 85610; 85730; 86850; 86900; 86901; 93005; 96361; 96365; 96376; 99285; C9113; G0378; J0171; J7030; Q9967

== ENCOUNTER 2017-06-19 19:40 | Observation (INO) | payer MEDICARE ==
[~2017-06-19] VITALS: Ht 157.5 cm; Wt 67.0 kg
[~2017-06-19 19:40] MED LIST changes: +ASPI-516 CHEW; -ASPI81 PO; +BRIL90TA PO; -CIPR500T2 PO; -LISI5 PO; -METO50TA PO; -METR-1 PO; +MIRA3350 PO; -PRAV40TA PO; -RANI150 PO; -TICA90 PO
[2017-06-19 19:42] VITALS: BP 137/61; PULSE 125; RESP 18; TEMP 98; O2SAT 96
[2017-06-19] MEDS ORDERED: BLOOD PRESSURE (19:51)
[2017-06-19] MEDS ORDERED: SODIUM CHLOR 0.9% 1000 ML INJ 1,000 ML IV ONE (20:15)
--- NOTE | 2017-06-19 20:40 | PD ---
HPI Chief Complaint: Bleeding Time Seen by Provider: 20:05 Travel History International Travel<30 days: No Contact w/Intl Traveler<30days: No Traveled to known affect area: No History of Present Illness HPI 86-year-old female presents to emergency department complaining of rectal bleeding, syncopal episodes, weakness, and dizziness today. Patient states that she was in her kitchen today and passed out for approximately 20 minutes. She woke up on her kitchen floor. At this time, she denies headache or head pain. She denies chest pain or shortness breath. Has mild abdominal bloating but denies abdominal pain. Family states that they found a significant amount of blood on the bathroom floor upon arrival to her house today from her rectal bleeding. She is on Brilinta. States that she was here several days ago with rectal bleeding and they performed a colonoscopy. PFSH Past Medical History Hx Anticoagulant Therapy: Yes (BRILINTA ) Arthritis: No Heart Rhythm Problems: No Cancer: No Cardiac Catheterization: Yes Cardiovascular Problems: Yes (STENT IN THE HEART) High Cholesterol: No Chest Pain: No Congestive Heart Failure: No Diabetes: Yes Patient Takes Glucophage: No Diminished Hearing: No Endocrine: Yes Gastrointestinal Disorders: Yes Genitourinary: Yes Hepatitis: No Hiatal Hernia: Yes Hypertension: Yes Immune Disorder: No Implanted Vascular Access Dvce: No Medical other: Yes (ARTHRITIS) Musculoskeletal: Yes Neurologic: No Psychiatric: No Respiratory: No Thyroid Disease: No Menopausal: Yes Past Surgical History Abdominal Surgery: Yes (HYSTERECTOMY WITH APPENDECTOMY 1954) Appendectomy: Yes Coronary Stent: Yes (x1) Genitourinary Surgery: Yes (BLADDER SUSPENSION ) Hysterectomy: Yes Oral Surgery: Yes (T&A AGE 10) Pacemaker: No Other Surgery: Yes Family History Family Hypercholesterolemia: Yes Social History Alcohol Use: No Tobacco Use: No Substance Use: No Allergies-Medications (Allergen,Severity, Reaction): Coded Allergies: clopidogrel (Unverified Allergy, Severe, 06/19/17) Uncoded Allergies: fish (Allergy, Severe, 11/01/15) hives, swelling Reported Meds & Prescriptions Reported Meds & Active Scripts Active Reported [Blood Pressure ] Unknown Strength Unknown Dose Brilinta (Ticagrelor) 90 Mg Tab 90 Mg PO BID Aspirin 81 Mg Chew 81 Mg CHEW DAILY Review of Systems Except as stated in HPI: all other systems reviewed are Neg Physical Exam Narrative GENERAL: Well developed well-nourished in no apparent distress SKIN: Focused skin assessment warm/dry. HEAD: Atraumatic. Normocephalic. EYES: Pupils equal and round. No scleral icterus. No injection or drainage. ENT: No nasal bleeding or discharge. Mucous membranes pink and moist. NECK: Trachea midline. No JVD. No midline tenderness CARDIOVASCULAR: Regular rate and rhythm. No murmur appreciated. RESPIRATORY: No accessory muscle use. Clear to auscultation. Breath sounds equal bilaterally. GASTROINTESTINAL: Abdomen soft, non-tender, nondistended. Hepatic and splenic margins not palpable. MUSCULOSKELETAL: No obvious deformities. No clubbing. No cyanosis. No edema. BACK: No CVA tenderness. No rash. No point tenderness on palpation of the spine. Rectal exam- good tone, aries blood in the stool NEUROLOGICAL: Awake and alert. No obvious cranial nerve deficits. Motor grossly within normal limits. Normal speech. PSYCHIATRIC: Appropriate mood and affect; insight and judgment normal. Data Data Last Documented VS Vital Signs Date Time Temp Pulse Resp B/P (MAP) Pulse Ox O2 Delivery O2 Flow Rate FiO2 06/19/17 21:10 86 16 117/72 (87) 95 Room Air 06/19/17 19:42 98.0 Orders Orders Electrocardiogram (06/19/17 20:15) Complete Blood Count With Diff (06/19/17 20:15) Comprehensive Metabolic Panel (06/19/17 20:15) Magnesium (Mg) (06/19/17 20:15) Urinalysis - C+S If Indicated (06/19/17 20:15) Ct Brain W/O Iv Contrast(Rout) (06/19/17 20:15) Ct Cerv Spine W/O Contrast (06/19/17 20:15) Sodium Chlor 0.9% 1000 Ml Inj (Ns 1000 M (06/19/17 20:15) Lactic Acid (06/19/17 20:15) Red Blood Cells (Rbc) (06/19/17 20:15) Ckmb (Isoenzyme) Profile (06/19/17 20:15) Prothrombin Time / Inr (Pt) (06/19/17 20:15) Act Partial Throm Time (Ptt) (06/19/17 20:15) Troponin I (06/19/17 20:15) Lipase (06/19/17 20:15) Chest, Single Ap (06/19/17 20:15) Type And Screen (06/19/17 20:15) CKMB (06/19/17 20:20) CKMB% (06/19/17 20:20) Admit Order (Ed Use Only) (06/19/17 22:08) Place In Observation (06/19/17 ) Vital Signs (Adult) Q4H (06/19/17 22:33) Activity Oob With Assistance (06/19/17 22:33) Sodium Chloride 0.9% Flush (Ns Flush) (06/19/17 22:45) Sodium Chloride 0.9% Flush (Ns Flush) (06/20/17 09:00) Acetaminophen (Tylenol) (06/19/17 22:45) Ondansetron Inj (Zofran Inj) (06/19/17 22:45) Basic Metabolic Panel (Bmp) (06/20/17 06:00) Complete Blood Count With Diff (06/20/17 06:00) Scd Bilateral/Knee High ADIA.BID (06/19/17 22:33) Naloxone Inj (Narcan Inj) (06/19/17 22:45) Docusate Sodium-Senna (Nolvia-Colace) (06/20/17 09:00) Magnesium Hydroxide Liq (Milk Of Magnesi (06/19/17 22:45) Sennosides (Senokot) (06/19/17 22:45) Bisacodyl Supp (Dulcolax Supp) (06/19/17 22:45) Lactulose Liq (Lactulose Liq) (06/19/17 22:45) Labs Laboratory Tests Test 06/19/17 20:20 06/19/17 20:25 06/19/17 20:35 White Blood Count 11.3 TH/MM3 Red Blood Count 3.27 MIL/MM3 Hemoglobin 8.4 GM/DL Hematocrit 25.4 % Mean Corpuscular Volume 77.7 FL Mean Corpuscular Hemoglobin 25.8 PG Mean Corpuscular Hemoglobin Concent 33.2 % Red Cell Distribution Width 14.7 % Platelet Count 317 TH/MM3 Mean Platelet Volume 9.1 FL Neutrophils (%) (Auto) 84.1 % Lymphocytes (%) (Auto) 10.8 % Monocytes (%) (Auto) 4.7 % Eosinophils (%) (Auto) 0.1 % Basophils (%) (Auto) 0.3 % Neutrophils # (Auto) 9.5 TH/MM3 Lymphocytes # (Auto) 1.2 TH/MM3 Monocytes # (Auto) 0.5 TH/MM3 Eosinophils # (Auto) 0.0 TH/MM3 Basophils # (Auto) 0.0 TH/MM3 CBC Comment DIFF FINAL Differential Comment Prothrombin Time 10.4 SEC Prothromb Time International Ratio 1.0 RATIO Activated Partial Thromboplast Time 21.5 SEC Blood Urea Nitrogen 19 MG/DL Creatinine 0.83 MG/DL Random Glucose 219 MG/DL Total Protein 7.1 GM/DL Albumin 3.4 GM/DL Calcium Level 8.6 MG/DL Magnesium Level 1.7 MG/DL Alkaline Phosphatase 82 U/L Aspartate Amino Transf (AST/SGOT) 17 U/L Alanine Aminotransferase (ALT/SGPT) 31 U/L Total Bilirubin 0.2 MG/DL Sodium Level 129 MEQ/L Potassium Level 3.9 MEQ/L Chloride Level 95 MEQ/L Carbon Dioxide Level 25.7 MEQ/L Anion Gap 8 MEQ/L Estimat Glomerular Filtration Rate 65 ML/MIN Total Creatine Kinase 170 U/L Creatine Kinase MB 3.6 NG/ML Troponin I LESS THAN 0.02 NG/ML Lipase 128 U/L Lactic Acid Level 1.5 mmol/L Urine Color YELLOW Urine Turbidity CLEAR Urine pH 6.5 Urine Specific [place] 1.016 Urine Protein NEG mg/dL Urine Glucose (UA) 300 mg/dL Urine Ketones NEG mg/dL Urine Occult Blood NEG Urine Nitrite NEG Urine Bilirubin NEG Urine Urobilinogen LESS THAN 2.0 MG/DL Urine Leukocyte Esterase LARGE Urine RBC LESS THAN 1 /hpf Urine WBC 3 /hpf Urine Squamous Epithelial Cells 2 /hpf Urine Hyaline Casts 3 /lpf Urine Mucus FEW /lpf Microscopic Urinalysis Comment CULT NOT INDICATED MDM Medical Decision Making Medical Screen Exam Complete: Yes Emergency Medical Condition: Yes Differential Diagnosis Bleeding hemorrhoids, hyponatremia, syncope Narrative Course 86-year-old female presents to emergency department complaining of rectal bleeding, syncopal episodes, weakness, and dizziness today. Patient states that she was in her kitchen today and passed out for approximately 20 minutes. She woke up on her kitchen floor. At this time, she denies headache or head pain. She denies chest pain or shortness breath. Has mild abdominal bloating but denies abdominal pain. Family states that they found a significant amount of blood on the bathroom floor upon arrival to her house today from her rectal bleeding. She is on Brilinta. States that she was here several days ago with rectal bleeding and they performed a colonoscopy. Vital signs-initially tachycardic however, patient's heart rate has decreased to the 80s after fluids. Last Impressions Head CT 06/19/172014 Signed Impressions: Service Date/Time: Monday, June 19, 2017 20:31 - CONCLUSION: Chronic and small vessel ischemic changes without any evidence for acute hemorrhage or mass effect and chronic sinusitis of the sphenoid sinus. Sunday Gross MD Chest X-Ray 06/19/172014 Signed Impressions: Service Date/Time: Monday, June 19, 2017 20:57 - CONCLUSION: No acute cardiopulmonary disease. Sunday Gross MD Cervical Spine CT 06/19/172014 Signed Impressions: Service Date/Time: Monday, June 19, 2017 20:31 - CONCLUSION: Neural foramina compromise right C4-5 and C5-6 without any significant thecal sac stenosis. Sunday Gross MD Because of patient's known history of bleeding hemorrhoids and recent work up, I did not feel further abdominal imaging was necessary. CBC & BMP Diagram 06/19/17 20:20 Total Protein 7.1, Albumin 3.4, Calcium Level 8.6, Magnesium Level 1.7, Alkaline Phosphatase 82, Aspartate Amino Transf (AST/SGOT) 17, Alanine Aminotransferase (ALT/SGPT) 31, Total Bilirubin 0.2 Blood sugar found to be elevated at 219. Glycosuria also present. Patient states that she does not take medications for her diabetes and suspects that the elevated blood sugar secondary to her new dietary addition of juice just today. Pt will be admitted for symptomatic anemia, syncope, leukocytosis. Consider GI consult for GIB. Thank you Dr. Bai for taking this patient. [facility] Point of Care Internal Pos. & Neg. Controls: Passed Fecal Specimen Occult Blood: Positive Diagnosis Primary Impression: Syncope and collapse Additional Impressions: Leukocytosis Qualified Codes: D72.829 - Elevated white blood cell count, unspecified Rectal bleed Anemia Qualified Codes: D64.89 - Other specified anemias Admitting Information Admitting Physician Requests: Admit Condition: Stable Marni Alexander Jun 19, 2017 20:40
--- NOTE | 2017-06-19 20:58 | RADRPT ---
EXAM DATE/TIME: 06/19/2017 20:31 [facility] COMPARISON: No previous studies available for comparison. INDICATIONS : Syncopal episode. RADIATION DOSE: 56.35 CTDIvol (mGy) MEDICAL HISTORY : Cardiovascular disease. Hypertension. Diabetes mellitus type 2. SURGICAL HISTORY : Coronary artery stent. Appendectomy.Hysterectomy. ENCOUNTER: Initial ACUITY: 1 day PAIN SCALE: 0/10 LOCATION: cranial TECHNIQUE: Multiple contiguous axial images were obtained of the head. Using automated exposure control and adj ustment of the mA and/or kV according to patient size, radiation dose was kept as low as reasonably a chievable to obtain optimal diagnostic quality images. DICOM format image data is available electro nically for review and comparison. FINDINGS: There is no evidence for intracranial hemorrhage, mass effect, mass lesions, or edema. The visualize d bony structures appear intact. Significant degree of brain atrophy is seen. Moderate to severe per iventricular white matter changes are seen nonspecific mostly consistent with chronic small vessel is chemic changes. There are no signs of acute infarction for technique. There is complete opacificatio n of the left sphenoid sinus. CONCLUSION: Chronic and small vessel ischemic changes without any evidence for acute hemorrhage o r mass effect and chronic sinusitis of the sphenoid sinus. Sunday Gross MD on June 19, 2017 at 20:55 Board Certified Radiologist. This report was verified electronically.
[2017-06-19 21:01] LABS: AUTOMATED NEUTROPHIL # 9.5 TH/MM3 (1.8-7.7); BASOPHIL % 0.3 % (0.0-2.0); EOSINOPHIL % 0.1 % (0.0-4.0); HEMATOCRIT 25.4 % (35.0-46.0); HEMOGLOBIN 8.4 GM/DL (11.6-15.3); LYMPH % 10.8 % (9.0-44.0); LYMPHOCYTE # 1.2 TH/MM3 (1.0-4.8); MEAN CELL VOLUME 77.7 FL (80.0-100.0); MEAN CORPUSCULAR HEMOGLOBIN 25.8 PG (27.0-34.0); MEAN CORPUSCULAR HGB CONC 33.2 % (32.0-36.0); MEAN PLATELET VOLUME 9.1 FL (7.0-11.0); MONO % 4.7 % (0.0-8.0); MONOCYTE # 0.5 TH/MM3 (0-0.9); NEUT % 84.1 % (16.0-70.0); PLATELET COUNT 317 TH/MM3 (150-450); RED BLOOD COUNT 3.27 MIL/MM3 (4.00-5.30); RED CELL DISTRIBUTION WIDTH 14.7 % (11.6-17.2); WHITE BLOOD COUNT 11.3 TH/MM3 (4.0-11.0)
--- NOTE | 2017-06-19 21:04 | RADRPT ---
EXAM DATE/TIME: 06/19/2017 20:31 [facility] COMPARISON: No previous studies available for comparison. INDICATIONS : Syncopal episode. RADIATION DOSE: 32.82 CTDIvol (mGy) MEDICAL HISTORY : Cardiovascular disease. Hypertension. Diabetes mellitus type 2. SURGICAL HISTORY : Coronary artery stent. Appendectomy.Hysterectomy. ENCOUNTER: Initial ACUITY: 1 day PAIN SCALE: 0/10 LOCATION: neck TECHNIQUE: Volumetric scanning of the cervical spine was performed. Multiplanar reconstructions in the sagittal, coronal and oblique axial planes were performed. Using automated exposure control and adjustment o f the mA and/or kV according to patient size, radiation dose was kept as low as reasonably achievable to obtain optimal diagnostic quality images. DICOM format image data is available electronically f or review and comparison. FINDINGS: No definite fracture is seen for technique. C2-C3: There is no evidence for any significant compromise to the thecal sac, or the exiting nerve roots. N o appreciable thecal sac stenosis is seen. The neural foramina and lateral recess appear patent bila terally. C3-C4: There is no evidence for any significant compromise to the thecal sac, or the exiting nerve roots. N o appreciable thecal sac stenosis is seen. The neural foramina and lateral recess appear patent bila terally. C4-C5: Moderate degenerative changes are seen within the disc space and facets. There is moderate neural for sony compromise on the right due to asymmetrical bulging disc and hypertrophic changes. Slight bulgi ng disc and hypertrophic changes are seen with indentation on the thecal sac and no significant compr omise to the thecal sac. C5-C6: Significant degenerative changes are seen within the disc space and facets. There is moderate neural foramina compromise on the right due to asymmetrical bulging disc and hypertrophic changes. Slight bu lging disc and hypertrophic changes are seen with indentation on the thecal sac and no significant co mpromise to the thecal sac. C6-C7: Moderate degenerative changes are seen within the disc space and facets. Slight bulging disc and hype rtrophic changes are seen with indentation on the thecal sac and no significant compromise to the the laura sac or the exiting nerve roots. C7-T1: There is no evidence for any significant compromise to the thecal sac, or the exiting nerve roots. N o appreciable thecal sac stenosis is seen. The neural foramina and lateral recess appear patent bila terally. CONCLUSION: Neural foramina compromise right C4-5 and C5-6 without any significant thecal sac stenosis. Sunday Gross MD on June 19, 2017 at 20:58 Board Certified Radiologist. This report was verified electronically.
--- NOTE | 2017-06-19 21:07 | PD ---
Physical Exam Narrative General: The patient is a well-developed well-nourished female in no acute distress. Head and Neck exam: Head is normocephalic atraumatic. Eyes: EOMI, pupils are equal round and reactive to light. Nose: Midline septum with pink mucous membranes Mouth: Dentition unremarkable. Moist mucus membranes. Posterior oropharynx is not erythematous. No tonsillar hypertrophy. Uvula midline. Airway patent. Neck: No palpable lymphadenopathy. No nuchal rigidity. No thyromegaly. Cardiovascular: Sinus tachycardia in the 100 without murmurs, gallops, or rubs. No pulse deficit to the extremities on simultaneous auscultation and palpation of the radial artery. Lungs: Clear to auscultation bilaterally. No wheezes, rhonchi, or rales. Abdomen: Soft, without tenderness to palpation in all 4 quadrants of the abdomen. No guarding, rebound, or rigidity. Normal bowel sounds are audible. No tenderness on palpation of McBurney's point. Negative Ryder's sign. Extremities: No clubbing, cyanosis, or edema. 2+ pulses in all 4 extremities. No calf tenderness on palpation. Back: No spinous process tenderness to palpation. No costovertebral angle tenderness to palpation. Neurologic Exam: Cranial nerves 2-12 were intact on exam. Strength is 5/5 in all 4 extremities. No sensory deficits noted. Skin Exam: No rash noted. Intact skin that is warm and dry. Data Data Last Documented VS Vital Signs Date Time Temp Pulse Resp B/P (MAP) Pulse Ox O2 Delivery O2 Flow Rate FiO2 06/19/17 19:42 98.0 125 18 137/61 (86) 96 Room Air Orders Orders Electrocardiogram (06/19/17 20:15) Complete Blood Count With Diff (06/19/17 20:15) Comprehensive Metabolic Panel (06/19/17 20:15) Magnesium (Mg) (06/19/17 20:15) Urinalysis - C+S If Indicated (06/19/17 20:15) Ct Brain W/O Iv Contrast(Rout) (06/19/17 20:15) Ct Cerv Spine W/O Contrast (06/19/17 20:15) Sodium Chlor 0.9% 1000 Ml Inj (Ns 1000 M (06/19/17 20:15) Lactic Acid (06/19/17 20:15) Red Blood Cells (Rbc) (06/19/17 20:15) Ckmb (Isoenzyme) Profile (06/19/17 20:15) Prothrombin Time / Inr (Pt) (06/19/17 20:15) Act Partial Throm Time (Ptt) (06/19/17 20:15) Troponin I (06/19/17 20:15) Lipase (06/19/17 20:15) Chest, Single Ap (06/19/17 20:15) Type And Screen (06/19/17 20:15) CKMB (06/19/17 20:20) CKMB% (06/19/17 20:20) Labs Laboratory Tests Test 06/19/17 20:20 06/19/17 20:25 06/19/17 20:35 White Blood Count 11.3 TH/MM3 Red Blood Count 3.27 MIL/MM3 Hemoglobin 8.4 GM/DL Hematocrit 25.4 % Mean Corpuscular Volume 77.7 FL Mean Corpuscular Hemoglobin 25.8 PG Mean Corpuscular Hemoglobin Concent 33.2 % Red Cell Distribution Width 14.7 % Platelet Count 317 TH/MM3 Mean Platelet Volume 9.1 FL Neutrophils (%) (Auto) 84.1 % Lymphocytes (%) (Auto) 10.8 % Monocytes (%) (Auto) 4.7 % Eosinophils (%) (Auto) 0.1 % Basophils (%) (Auto) 0.3 % Neutrophils # (Auto) 9.5 TH/MM3 Lymphocytes # (Auto) 1.2 TH/MM3 Monocytes # (Auto) 0.5 TH/MM3 Eosinophils # (Auto) 0.0 TH/MM3 Basophils # (Auto) 0.0 TH/MM3 CBC Comment DIFF FINAL Differential Comment Prothrombin Time 10.4 SEC Prothromb Time International Ratio 1.0 RATIO Activated Partial Thromboplast Time 21.5 SEC Blood Urea Nitrogen 19 MG/DL Creatinine 0.83 MG/DL Random Glucose 219 MG/DL Total Protein 7.1 GM/DL Albumin 3.4 GM/DL Calcium Level 8.6 MG/DL Magnesium Level 1.7 MG/DL Alkaline Phosphatase 82 U/L Aspartate Amino Transf (AST/SGOT) 17 U/L Alanine Aminotransferase (ALT/SGPT) 31 U/L Total Bilirubin 0.2 MG/DL Sodium Level 129 MEQ/L Potassium Level 3.9 MEQ/L Chloride Level 95 MEQ/L Carbon Dioxide Level 25.7 MEQ/L Anion Gap 8 MEQ/L Estimat Glomerular Filtration Rate 65 ML/MIN Total Creatine Kinase 170 U/L Creatine Kinase MB 3.6 NG/ML Troponin I LESS THAN 0.02 NG/ML Lipase 128 U/L Lactic Acid Level 1.5 mmol/L Urine Color YELLOW Urine Turbidity CLEAR Urine pH 6.5 Urine Specific [place] 1.016 Urine Protein NEG mg/dL Urine Glucose (UA) 300 mg/dL Urine Ketones NEG mg/dL Urine Occult Blood NEG Urine Nitrite NEG Urine Bilirubin NEG Urine Urobilinogen LESS THAN 2.0 MG/DL Urine Leukocyte Esterase LARGE Urine RBC LESS THAN 1 /hpf Urine WBC 3 /hpf Urine Squamous Epithelial Cells 2 /hpf Urine Hyaline Casts 3 /lpf Urine Mucus FEW /lpf Microscopic Urinalysis Comment CULT NOT INDICATED MDM Medical Record Reviewed: Yes Supervised Visit with MARICRUZ: Yes Interpretation(s) Last Impressions Head CT 06/19/172014 Signed Impressions: Service Date/Time: Monday, June 19, 2017 20:31 - CONCLUSION: Chronic and small vessel ischemic changes without any evidence for acute hemorrhage or mass effect and chronic sinusitis of the sphenoid sinus. Sunday Gross MD Chest X-Ray 06/19/172014 Signed Impressions: Service Date/Time: Monday, June 19, 2017 20:57 - CONCLUSION: No acute cardiopulmonary disease. Sunday Gross MD Cervical Spine CT 06/19/172014 Signed Impressions: Service Date/Time: Monday, June 19, 2017 20:31 - CONCLUSION: Neural foramina compromise right C4-5 and C5-6 without any significant thecal sac stenosis. Sunday Gross MD Narrative Course I, Dr. Mena, have reviewed the advance practice practitioner's documentation and am in agreement, met with the patient face to face, made the diagnosis, and the medical decision making was done by me. The patient was initially evaluated by Katie. Please see their complete history and physical. *My assessment and Findings: The patient presents with a history of awakening this morning with GI bleeding again. She reports that she was just admitted to the hospital related to a GI bleed 1 week ago. Patient reports that she was diagnosed with hemorrhoids. She reports that today she's had 4 episodes of bloody stool. She reports that she did not come to the emergency department immediately as she was feeling well. She reports that since having the GI bleed a week ago she has had abdominal bloating which is no worse than usual. She reports that she has mild cramping. She reports that this evening she prepared a meal and when going to pick up man something from the kitchen lost consciousness. She reports that she woke up on the floor approximately 20 minutes later. She denies having any pain associated with the fall. She denies having any chest pain or chest pressure. She reports that she does have chronic shortness of breath with exertion. She denies being any worse than usual. Patient reports that she has a history of coronary artery disease with stent placed previously. Her md do resident urgent care is Dr. Crump. During the course of the patients emergency department visit, the patients history, examination, and differential diagnosis were reviewed with the patient. The patient was placed on a cardiac sonographer with oximetry and frequent blood pressure monitoring. The patient had IV access obtained and blood work sent for analysis. ECG shows Sinus tach rate of 102, nonspecific ST/ T wave abnormality. QRS duration is 85 ms, QTC 430 ms, no acute ST segment elevation or depression. The patient was initially provided normal saline a 500 mL bolus 1. The patient was typed and crossmatched for 2 units of blood to be placed on hold as the patient's syncopal event could be related to symptomatic anemia from GI bleed. The patients laboratory studies were reviewed and remarkable for white count 11.3, hemoglobin 8.4, platelets 317 with 84.1 neutrophils, CMP is remarkable for sodium 129, chloride 95, BE ON 19, glucose 219 within normal cardiac enzymes , lipase 128, lactic acid 1.5, PT 10.4, PTT 21.5, 300 glucose, large leukocyte esterase Radiology studies were reviewed and remarkable for a chest x-ray that shows no acute cardiopulmonary disease. CT scan of the brain shows chronic and small vessel ischemic changes without any evidence for acute hemorrhage or mass effect and chronic sinusitis of the sphenoid sinus. CT scan of the C-spine shows neural foraminal compromise of the right C4-C5 C5-C6 without any significant thecal sac stenosis. The patients results were discussed with the patient, including the plan of care. I explained that further testing and/ or monitoring is indicated based on the patients history, examination, and/ or laboratory findings. Therefore, I recommended admission for additional evaluation. The patient expressed understanding and was agreeable with this plan. The patient was admitted to the hospital in stable condition and [facility] Diagnosis Primary Impression: GI bleed Qualified Codes: K92.2 - Gastrointestinal hemorrhage, unspecified Additional Impression: Syncope and collapse Admitting Information Admitting Physician Requests: Admit Blanca Mena MD Jun 19, 2017 21:07
[2017-06-19 21:09] LABS: PROTHROMBIN TIME - PATIENT 10.4 SEC (9.8-11.6)
[2017-06-19 21:10] VITALS: BP 117/72; PULSE 86; RESP 16; O2SAT 95
[2017-06-19 21:26] LABS: ALBUMIN 3.4 GM/DL (3.4-5.0); AST (GOT) 17 U/L (15-37); BICARBONATE 25.7 MEQ/L (21.0-32.0); BLOOD UREA NITROGEN 19 MG/DL (7-18); CALCIUM 8.6 MG/DL (8.5-10.1); CHLORIDE 95 MEQ/L (98-107); CREATININE 0.83 MG/DL (0.50-1.00); GLOMERULAR FILTRATION RATE 65 ML/MIN (>89); GLUCOSE,RANDOM 219 MG/DL (74-106); LIPASE 128 U/L (73-393); MAGNESIUM 1.7 MG/DL (1.5-2.5); SODIUM (NA) 129 MEQ/L (136-145)
[2017-06-19 21:29] LABS: BILIRUBIN, URINE NEG (NEG); BLOOD, URINE NEG (NEG); GLUCOSE,URINE 300 mg/dL (NEG); HYALINE CAST, URINE 3 /lpf (RARE); KETONE, URINE NEG (NEG); MUCUS URINE FEW /lpf (OCC); NITRITE,URINE NEG (NEG); PH, URINE 6.5 (5.0-8.5); SQUAMOUS EPITHELIAL CELL URINE 2 /hpf (0-5); URINE COLOR YELLOW (YELLW/STRAW); URINE LEUKOCYTE ESTERASE LARGE (NEG)
[2017-06-19 21:32] LABS: ALKALINE PHOSPHATASE 82 U/L (45-117); ALT (GPT) 31 U/L (10-53); TOTAL BILIRUBIN ADULT 0.2 MG/DL (0.2-1.0); TOTAL PROTEIN 7.1 GM/DL (6.4-8.2); TROPONIN I LESS THAN 0.02 NG/ML (0.02-0.05)
--- NOTE | 2017-06-19 21:32 | RADRPT ---
EXAM DATE/TIME: 06/19/2017 20:57 [facility] COMPARISON: CHEST SINGLE AP, November 20, 2015, 12:46. INDICATIONS : Shortness of breath and syncopal episode today. MEDICAL HISTORY : Hypertension. Diabetes mellitus type II. Cardiovascular disease. SURGICAL HISTORY : Hysterectomy. Coronary artery stent. Appendectomy. ENCOUNTER: Initial ACUITY: 1 day PAIN SCORE: 0/10 LOCATION: Bilateral chest FINDINGS: The lungs are clear without infiltrate, nodule, or mass. There is no appreciable pleural effusion fo r technique. Heart and mediastinum are unremarkable. There are atherosclerotic calcifications of the aorta due to chronic atherosclerotic disease. CONCLUSION: No acute cardiopulmonary disease. Sunday Gross MD on June 19, 2017 at 21:29 Board Certified Radiologist. This report was verified electronically.
[2017-06-19] MEDS ORDERED: SENNOSIDES 8.6 MG TAB PO PRN (22:45)
[2017-06-19] MEDS ORDERED: LACTULOSE SYRUP 20 GM/30 ML CUP PO PRN (22:45)
[2017-06-19] MEDS ORDERED: MAGNESIUM HYDROXIDE SUSP 30 ML CUP PO PRN (22:45)
[2017-06-19] MEDS ORDERED: ACETAMINOPHEN 325 MG TAB PO PRN (22:45)
[2017-06-19] MEDS ORDERED: NALOXONE HCL 0.4 MG/ML AMP IV PUSH PRN (22:45)
[2017-06-19] MEDS ORDERED: BISACODYL 10 MG SUPP RECTAL PRN (22:45)
[2017-06-19] MEDS ORDERED: SODIUM CHLORIDE 0.9% FLUSH 10 ML FLUSH IV FLUSH PRN (22:45)
[2017-06-19] MEDS ORDERED: GLUCAGON 1 MG/ML VIAL OTHER PRN (22:45)
[2017-06-19] MEDS ORDERED: DEXTROSE 50% IN WATER 50 ML VIAL(D50) IV PUSH PRN (22:45)
[2017-06-19] MEDS ORDERED: ONDANSETRON HCL 4 MG/2 ML VIAL IVP PRN (22:45)
--- NOTE | 2017-06-19 22:51 | HHI.HP ---
[facility] Service [facility] Primary Care Physician Calvin Crump MD Admission Diagnosis GIB, syncope, symptomatic anemia Diagnoses: Travel History International Travel<30 Days: No Contact w/Intl Traveler <30 Da: No Traveled to Known Affected Are: No History of Present Illness 86-year-old female with a past medical history significant for diet controlled diabetes mellitus, hypertension, CAD and neuropathy presents to the emergency department after suffering a syncopal episode. The patient was discharged on where she was evaluated for rectal bleeding. She was seen by gastroenterology and had a colonoscopy done which showed severe diverticulosis noted in the sigmoid and descending colon and large internal hemorrhoids. The patient reports she was doing well at home until this morning when she awoke to rectal bleeding. She then noted that while she was making breakfast this morning she had a syncopal episode and awoke on the floor. She was tachycardic on arrival to the emergency department at 125. H&H 8.4/25.4, was 9.8/28.6 on . The patient reports that her rectal bleeding stopped around noon today and has not restarted. Review of Systems Denies fever or chills Denies blurry vision, otorrhea, rhinorrhea Denies sore throat and cough No chest pain, palpitations, shortness of breath Diffuse abdominal pain Denies constipation/diarrhea/nausea/vomiting Denies muscle pain/weakness No rashes Past Family Social History Past Medical History Diet-controlled diabetes mellitus Hypertension Neuropathy CAD status post stent placement on 10/03 Past Surgical History Appendectomy Hysterectomy Cardiac catheterization in September 2016 Reported Medications Reported Meds & Active Scripts Active Reported [Blood Pressure ] Unknown Strength Unknown Dose Brilinta (Ticagrelor) 90 Mg Tab 90 Mg PO BID Aspirin 81 Mg Chew 81 Mg CHEW DAILY Allergies: Coded Allergies: clopidogrel (Unverified Allergy, Severe, 06/19/17) Uncoded Allergies: fish (Allergy, Severe, 11/01/15) hives, swelling Family History Mother with diabetes mellitus. Social History Denies alcohol, tobacco and illicit drugs Physical Exam Vital Signs Vital Signs Date Time Temp Pulse Resp B/P (MAP) Pulse Ox O2 Delivery O2 Flow Rate FiO2 06/19/17 21:10 86 16 117/72 (87) 95 Room Air 06/19/17 19:42 98.0 125 18 137/61 (86) 96 Room Air Physical Exam GENERAL: female lying in bed SKIN: No rashes, ecchymoses or lesions. Cool and dry. HEAD: Atraumatic. Normocephalic. No temporal or scalp tenderness. EYES: Pupils equal round and reactive. Extraocular motions intact. No scleral icterus. No injection or drainage. ENT: Nose without bleeding, purulent drainage or septal hematoma. Throat without erythema, tonsillar hypertrophy or exudate. Uvula midline. Airway patent. NECK: Trachea midline. No JVD or lymphadenopathy. Supple, nontender, no meningeal signs. CARDIOVASCULAR: Regular rate and rhythm without murmurs, gallops, or rubs. RESPIRATORY: Clear to auscultation. Breath sounds equal bilaterally. No wheezes , rales, or rhonchi. GASTROINTESTINAL: Abdomen soft, diffusely tender with deep palpation, nondistended. No hepato-splenomegaly, or palpable masses. No guarding. MUSCULOSKELETAL: Extremities without clubbing, cyanosis, or edema. No joint tenderness, effusion, or edema noted. No calf tenderness. NEUROLOGICAL: Awake and alert. Cranial nerves II through XII intact. Motor and sensory grossly within normal limits. Normal speech. Laboratory Laboratory Tests Test 06/19/17 20:20 06/19/17 20:25 06/19/17 20:35 White Blood Count 11.3 Red Blood Count 3.27 Hemoglobin 8.4 Hematocrit 25.4 Mean Corpuscular Volume 77.7 Mean Corpuscular Hemoglobin 25.8 Mean Corpuscular Hemoglobin Concent 33.2 Red Cell Distribution Width 14.7 Platelet Count 317 Mean Platelet Volume 9.1 Neutrophils (%) (Auto) 84.1 Lymphocytes (%) (Auto) 10.8 Monocytes (%) (Auto) 4.7 Eosinophils (%) (Auto) 0.1 Basophils (%) (Auto) 0.3 Neutrophils # (Auto) 9.5 Lymphocytes # (Auto) 1.2 Monocytes # (Auto) 0.5 Eosinophils # (Auto) 0.0 Basophils # (Auto) 0.0 CBC Comment DIFF FINAL Differential Comment Prothrombin Time 10.4 Prothromb Time International Ratio 1.0 Activated Partial Thromboplast Time 21.5 Blood Urea Nitrogen 19 Creatinine 0.83 Random Glucose 219 Total Protein 7.1 Albumin 3.4 Calcium Level 8.6 Magnesium Level 1.7 Alkaline Phosphatase 82 Aspartate Amino Transf (AST/SGOT) 17 Alanine Aminotransferase (ALT/SGPT) 31 Total Bilirubin 0.2 Sodium Level 129 Potassium Level 3.9 Chloride Level 95 Carbon Dioxide Level 25.7 Anion Gap 8 Estimat Glomerular Filtration Rate 65 Total Creatine Kinase 170 Creatine Kinase MB 3.6 Troponin I LESS THAN 0.02 Lipase 128 Lactic Acid Level 1.5 Urine Color YELLOW Urine Turbidity CLEAR Urine pH 6.5 Urine Specific [place] 1.016 Urine Protein NEG Urine Glucose (UA) 300 Urine Ketones NEG Urine Occult Blood NEG Urine Nitrite NEG Urine Bilirubin NEG Urine Urobilinogen LESS THAN 2.0 Urine Leukocyte Esterase LARGE Urine RBC LESS THAN 1 Urine WBC 3 Urine Squamous Epithelial Cells 2 Urine Hyaline Casts 3 Urine Mucus FEW Microscopic Urinalysis Comment CULT NOT INDICATED Result Diagram: 06/19/17201906/19/172019 Caprini VTE Risk Assessment Caprini VTE Risk Assessment: Mod/High Risk (score >= 2) Caprini Risk Assessment Model Point Value = 1 Point Value = 2 Point Value = 3 Point Value = 5 Age 41-60 Minor surgery BMI > 25 kg/m2 Swollen legs Varicose veins or History of unexplained or recurrent spontaneous Oral contraceptives or hormone replacement Sepsis (< 1 month) Serious lung disease, including pneumonia (< 1 month) Abnormal pulmonary function Acute myocardial infarction Congestive heart failure (< 1 month) History of inflammatory bowel disease Medical patient at bed rest Age 61-74 Arthroscopic surgery Major open surgery (> 45 min) Laparoscopic surgery (> 45 min) Malignancy Confined to bed (> 72 hours) Immobilizing plaster cast Central venous access Age >= 75 History of VTE Family history of VTE Factor V Leiden Prothrombin [id number] Lupus anticoagulant Anticardiolipin antibodies Elevated serum homocysteine Heparin-induced thrombocytopenia Other congenital or acquired thrombophilia Stroke (< 1 month) Elective arthroplasty Hip, pelvis, or leg fracture Acute spinal cord injury (< 1 month) Prophylaxis Regimen Total Risk Factor Score Risk Level Prophylaxis Regimen 0-1 Low Early ambulation 2 Moderate Order ONE of the following: *Sequential Compression Device (SCD) *Heparin 5000 units SQ BID 3-4 Higher Order ONE of the following medications: *Heparin 5000 units SQ TID *Enoxaparin/Lovenox 40 mg SQ daily (WT < 150 kg, CrCl > 30 mL/min) *Enoxaparin/Lovenox 30 mg SQ daily (WT < 150 kg, CrCl > 10-29 mL/min) *Enoxaparin/Lovenox 30 mg SQ BID (WT < 150 kg, CrCl > 30 mL/min) AND/OR *Sequential Compression Device (SCD) 5 or more Highest Order ONE of the following medications: *Heparin 5000 units SQ TID (Preferred with Epidurals) *Enoxaparin/Lovenox 40 mg SQ daily (WT < 150 kg, CrCl > 30 mL/min) *Enoxaparin/Lovenox 30 mg SQ daily (WT < 150 kg, CrCl > 10-29 mL/min) *Enoxaparin/Lovenox 30 mg SQ BID (WT < 150 kg, CrCl > 30 mL/min) AND *Sequential Compression Device (SCD) Assessment and Plan Assessment and Plan Assessment/plan: 1. Rectal bleeding/symptomatic anemia Serial H&H Transfuse when necessary Colonoscopy done one week ago showed severe diverticulosis noted in the sigmoid and descending colon and large internal hemorrhoids Monitor, if bleeding returns patient may benefit from repeat GI consult 2. Hyponatremia Fluid restriction Monitor BMP 3. Hypertension Continue home antihypertensives once medication reconciliation completed 4. CAD status post stent placement in September of this year Holding Brilinta and aspirin for active rectal bleeding 5. Diet-controlled diabetes mellitus SSI Monitor blood glucose FEN Diabetic diet Electrolytes: as above Holding pharmacologic anticoagulation for rectal bleeding Krupa Bai MD Jun 19, 2017 22:51
[2017-06-19 23:56] VITALS: BP 162/72; PULSE 91; RESP 17; TEMP 97.7; O2SAT 95
[2017-06-20] VITALS (7 sets, daily range): BP systolic 111–195; BP diastolic 54–106; PULSE 85–88; RESP 17–18; TEMP 97.1–98.8; O2SAT 94–96
[2017-06-20 05:46] LABS: AUTOMATED NEUTROPHIL # 5.1 TH/MM3 (1.8-7.7); BASOPHIL % 0.6 % (0.0-2.0); EOSINOPHIL # 0.1 TH/MM3 (0-0.4); EOSINOPHIL % 1.1 % (0.0-4.0); HEMOGLOBIN 9.1 GM/DL (11.6-15.3); LYMPH % 22.2 % (9.0-44.0); LYMPHOCYTE # 1.6 TH/MM3 (1.0-4.8); MEAN CELL VOLUME 80.3 FL (80.0-100.0); MEAN CORPUSCULAR HEMOGLOBIN 28.1 PG (27.0-34.0); MEAN PLATELET VOLUME 8.8 FL (7.0-11.0); MONO % 7.4 % (0.0-8.0); MONOCYTE # 0.5 TH/MM3 (0-0.9); NEUT % 68.7 % (16.0-70.0); PLATELET COUNT 230 TH/MM3 (150-450); RED BLOOD COUNT 3.24 MIL/MM3 (4.00-5.30); RED CELL DISTRIBUTION WIDTH 15.9 % (11.6-17.2); WHITE BLOOD COUNT 7.4 TH/MM3 (4.0-11.0)
[2017-06-20 06:19] LABS: BICARBONATE 26.9 MEQ/L (21.0-32.0); CREATININE 0.64 MG/DL (0.50-1.00)
[2017-06-20] MEDS ORDERED: SODIUM CHLORIDE 0.9% FLUSH 10 ML FLUSH IV FLUSH SCH (09:00)
[2017-06-20] MEDS ORDERED: DOCUSATE SODIUM 50 MG/SENNA 8.6 MG TAB PO SCH (09:00)
[2017-06-20] MEDS: INSULIN ASPART SUPPLEMENTAL SCALE SQ SCH ×2 (09:20→12:00)
[2017-06-20] MEDS ORDERED: ISOS60TA PO (14:23)
[2017-06-20] MEDS ORDERED: LOSA100T PO (14:23)
[2017-06-20] MEDS ORDERED: SPIR25 PO (14:23)
[2017-06-20] MEDS ORDERED: HYDR25TA5 PO (14:23)
[2017-06-20] MEDS ORDERED: PRAV40TA2 PO (14:23)
[2017-06-20] MEDS ORDERED: ISOSORBIDE MONONITRATE 60 MG TAB PO SCH (15:00)
[2017-06-20] MEDS ORDERED: LOSARTAN 50 MG TAB PO SCH (15:00)
--- NOTE | 2017-06-20 15:49 | HHI.PR ---
Subjective Remarks No complaints. Patient reports no further GI Bleeding and no abdominal pain. 2 units PRBC transfused overnight. Hgb trended from 8.4 to 9.1 with transfusion. Recheck at Noon. Objective Vital Signs Date Time Temp Pulse Resp B/P (MAP) Pulse Ox O2 Delivery O2 Flow Rate FiO2 06/20/17 14:00 98.0 85 18 170/84 (112) 96 06/20/17 12:29 98.1 85 18 195/83 (120) 94 06/20/17 07:40 98.0 86 18 170/74 (106) 95 06/20/17 03:10 97.9 88 17 152/74 96 06/20/17 02:51 97.1 88 17 172/84 95 06/20/17 00:32 98.8 86 17 111/54 95 06/19/17 23:56 97.7 91 17 162/72 95 06/19/17 23:13 06/19/17 21:10 86 16 117/72 (87) 95 Room Air 06/19/17 19:42 98.0 125 18 137/61 (86) 96 Room Air I/O 06/19/17 06/19/17 06/19/17 06/20/17 06/20/17 06/20/17 07:00 15:00 23:00 07:00 15:00 23:00 Intake Total 1000 ml 800 ml Balance 1000 ml 800 ml Intake IV Total 1000 ml Packed Cells 800 ml Result Diagram: 06/20/17 0523 06/20/17 05 Objective Remarks GENERAL: NAD, A&Ox3 HEAD: Normocephalic. NECK: Supple, trachea midline. No lymphadenopathy. EYES: No scleral icterus. No injection or drainage. CARDIOVASCULAR: Regular rate and rhythm without murmurs, gallops, or rubs. RESPIRATORY: Breath sounds equal bilaterally. No accessory muscle use. GASTROINTESTINAL: Abdomen soft, non-tender, nondistended. MUSCULOSKELETAL: No cyanosis, or edema. SKIN: Warm and dry. NEURO: No focal neurological deficitis. A/P Problem List: (1) Rectal bleed ICD Code: K62.5 - Hemorrhage of anus and rectum Assessment and Plan 86-year-old female admitted secondary to GI bleed, on Brilinta and aspirin at baseline Rectal bleeding/symptomatic anemia Follow for next H&H If next H&H is stable or improving we'll consider discharge Next H&H shows evidence of further bleeding will consult GI Transfuse when necessary Internal hemorrhoids and diverticulosis on colonoscopy from one week ago Hyponatremia Improved No further need to monitor Hypertension Follow BP Continue baseline treatment CAD Coronary Stent placed September 2016 Resume brilinta at discharge Do not resume aspirin at discharge Follow with cardiology Diabetes mellitus type 2 Follow blood sugars Insulin sliding scale Diabetic diet Anthony Santos MD Jun 20, 2017 15:49
[2017-06-20 17:20] LABS: HEMATOCRIT 28.6 % (35.0-46.0)
--- NOTE | 2017-06-20 17:30 | EKG ---
Date Performed: 06/19/2017 Time Performed: 20:06:54 PTAGE: 86 years EKG: SINUS TACHYCARDIA NONSPECIFIC ST & T-WAVE ABNORMALITY ABNORMAL RHYTHM ECG PREVIOUS TRACING 06/13/2017 @ 07.05.19 Compared to prior tracing no significant change DOCTOR: Lucy Maya Interpretating Date/Time 06/20/2017 17:29:52
[2017-06-20] MEDS ORDERED: PRAVASTATIN SOD 40 MG TAB PO SCH (21:00)
[2017-06-21] MEDS ORDERED: SPIRONOLACTONE 25 MG TAB PO SCH (09:00)
[2017-06-21] MEDS ORDERED: HYDROCHLOROTHIAZIDE 25 MG TAB PO SCH (09:00)
== END 2017-06-20 18:07 | disposition home or self-care (01) ==
LOC: NEPE 19:40 → UNDOADMIN 22:10 → NEDA 22:10 → INTOOBSV 22:34 → NEDA 22:34 → NEPFCDU 23:11
PROVIDERS: ADMIT Internal Medicine; ATTEND Internal Medicine
DX: K62.5 Hemorrhage of anus and rectum (principal); R55 Syncope and collapse; D64.89 Other specified anemias; D72.829 Elevated white blood cell count, unspecified; E87.1 Hypo-osmolality and hyponatremia; K57.90 Diverticulosis of intestine, part unspecified, without perforation or abscess without bleeding; K64.8 Other hemorrhoids; I10 Essential (primary) hypertension; R94.31 Abnormal electrocardiogram [ECG] [EKG]; E11.40 Type 2 diabetes mellitus with diabetic neuropathy, unspecified; I25.10 Atherosclerotic heart disease of native coronary artery without angina pectoris; J32.9 Chronic sinusitis, unspecified; Z95.5 Presence of coronary angioplasty implant and graft; Z90.710 Acquired absence of both cervix and uterus; Z79.82 Long term (current) use of aspirin
CPT/HCPCS: 36430; 70450; 71045; 72125; 80048; 80053; 81001; 82550; 82552; 82948; 83605; 83690; 83735; 84484; 85014; 85018; 85025; 85610; 85730; 86850; 86900; 86901; 86920; 93005; 96360; 96372; 99285; G0378; J1815; J7030; P9016